=== PATIENT | female | born 1980 | race Caucasian/White ===

== ENCOUNTER → 2023-03-04 | Outpatient (CLI) | payer OTHER, SELFPAY ==
--- NOTE | 2023-03-04 | IMM_PTH ---
PATIENT: AZAR SANCHEZ LOC: [facility] U#:[id number] AGE/SX: 42/F ROOM: RE03/04/[address]: Dr. Ryan Carter MD : 1980 BED: DIS: 03/04/2023 SPEC #: [id number] RECD: 03/05/23 13:11 STATUS: EDILSON REChad #: [id number] DORIAN: 03/04/23 00:[address]: Ryan Carter DEPT: IMMUNOHISTOCHEMISTRY RECD BY: Mary Catalan ENTERED: 03/05/23 13:13 SP TYPE: IMMUNO OTHR DR: Dr. Nathan Gallegos, DO Tissues: A - Right breast, NOS B - Right breast, NOS C - Axillary lymph node, NOS Procedures: E-CAD (initial) CALPONIN-1 (add) CK5-6 (add) CK8 (add) ER (add) HER2 JD (add) KI-67 (add) MAMM (add) P53 (add) DC (add) Pankeratin (add) GATA3 (add) P40 (add) MOC-31 (add) PHYSICIAN & [place] [id number] SPECIMEN INFORMATION: Tissue Source: A - Right breast mass at 2 o'clock, B - Right breast mass at 10 o'clock, C - Right axillary lymph node Clinical Info: Right breast mass Specimen Number: [id number] A-C CPT code: 83394 x3, 73097 x17, 44746 x6 METHODOLOGY: Deparaffinized sections of prefer/formalin-fixed tissue or PAP/DQ stained slides are incubated with monoclonal/polyclonal antibodies/oligonucleotide probes. Localization is made via biotin free immunoperoxidase method. Appropriate controls are performed and reacted as expected. Results on target cell population are indicated in the following table: RESULTS: ANTIBODY / CLONE RESULT Block A P53 (DO-7) positive Ki-67 (30-9) positive CK8 (38gjdhN11) positive CK5-6 (D5 & 1684) negative Calponin-1 (WZ833P) negative P40 (BC28) negative E-Cad (ECH-6) positive MOC-31 (4561) positive (DIM) MORPHOMETRIC ANALYSIS ER (clone 6F11) >95% mod intensity to strong DC (clone 16/1E2) 68% strong Her-2Neu (clone CB11) 0-1 + Block B P53 (DO-7) positive Ki-67 (30-9) positive CK8 (43lpxwB77) positive CK5-6 (D5 & 1684) negative Calponin-1 (WJ485T) negative P40 (BC28) negative E-Cad (ECH-6) positive MOC-31 (4561) positive (DIM) MORPHOMETRIC ANALYSIS ER (clone 6F11) >95% mod to strong intensity DC (clone 16/1E2) 70% strong intensity Her-2Neu (clone CB11) 0 Block C GATA3 (L50-823) positive Mammaglobin (31A5) positive AE1-3 (AE1/AE3/PCK26) positive E-Cad (ECH-6) positive The prognostic test for HER2 is performed on formalin-fixed paraffin embedded tissue. A 3+ (positive) staining pattern is defined as intense, homogeneous, complete, circumferential membranous staining in >10% of contiguous tumor cells. A similar weak (2+) staining pattern is interpreted as equivocal. ROSEANN follow-up testing is recommended for all equivocal cases. Positivity/negativity for ER/DC is reported if > or < 1% of the tumor cells are immuno- reactive, respectively. The ASCO/CAP criteria is used for scoring. Reference: Journal of Clinical Oncology, 2013; 31:9517-3249 & 2010; 16:0193-5017. Ischemic time: Less than one hour. Duration of fixation: 9.5 Hrs; Sample Adequate: Yes. These assays have not been validated on decalcified tissues. Results should be interpreted with caution given the likelihood of false negativity on decalcified specimens or fixation greater than 72 hours. Alternative testing methods (FISH/dualISH for Her2; gene expression for ER) are recommended, if applicable. Please notify the laboratory if additional testing is required. These tests were developed and their performance characteristics determined by [facility]. They may not have been cleared or approved by the U.S. Food and Drug Administration. The FDA has determined that such clearance or approval is not necessary. The above immunohistochemical/dualISH markers are ordered and reviewed by the Pathologist. INTERPRETATION: A. Right breast mass at 2 o'clock, core biopsy: Invasive ductal carcinoma, grade 2-3/3. Positive for estrogen receptors (favorable prognostic indicator). Positive for progesterone receptors (favorable prognostic indicator). Negative for overexpression of HGP4xqd. B. Right breast mass at 10 o'clock, core biopsy: Invasive ductal carcinoma, grade 2-3/3 Ductal carcinoma in situ Positive for estrogen receptors (favorable prognostic indicator). Positive for progesterone receptors (favorable prognostic indicator). Negative for overexpression of ESB8vtq. C. Right axillary lymph node, core biopsy: Metastatic ductal carcinoma of breast origin.
--- NOTE | 2023-03-04 | BRBX_PTH ---
PATIENT: AZAR SANCHEZ LOC: [facility] U#:[id number] AGE/SX: 42/F ROOM: RE03/04/[address]: Dr. Ryan Carter MD : 1980 BED: DIS: 03/04/2023 SPEC #: [id number] RECD: 03/04/23 13:23 STATUS: EDILSON SYLVAIN #: [id number] DORIAN: 03/04/23 00:[address]: Ryan Carter DEPT: SURGICAL PATHOLOGY RECD BY: Roberto Corrales ENTERED: 03/04/23 13:23 SP TYPE: BREAST BX OTHR DR: Dr. Nathan Gallegos DO Tissues: A - Right breast, NOS B - Right breast, NOS C - Right axillary region Procedures: Surgery Specimen Level IV HEADER OPERATION: Biopsy of right breast mass and axilla PRE-OP DIAGNOSIS: Biopsy of right mass and right axillary lymph node TISSUE SUBMITTED: A - Right breast mass 2 o'clock position, B - Right breast mass 10 o'clock position, C - Right axillary lymph node MICROSCOPIC DIAGNOSIS A. Right breast mass at 2 o'clock, core biopsy: Invasive ductal carcinoma with the following characteristics: Nuclear grade - 2/3 Maximal length - 16.5 millimeters Other findings - microcalcifications. See comment. B. 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 See comment. C. Right axillary lymph node, core biopsy: Metastatic carcinoma consistent with breast primary. See comment. AM:heather 03/05/2023 COMMENT A-C. Immunohistochemistry ([id number]) supports the above diagnosis. Case has been reviewed in consultation with Dr. Mak who concurs with the above diagnosis. IDC:SJ MICROSCOPIC DESCRIPTION Slides are reviewed. GROSS DESCRIPTION A - Received in fixative is one container labeled with the patient's name and designated right breast mass tissue 2 o'clock position. The specimen consists of multiple elongated fragments of vyas soft tissue that in aggregate measure 2.0 x 0.5 x 0.1 cm. The entire specimen is submitted in one cassette. B - Received in fixative is one container labeled with the patient's name and designated right breast mass tissue 10 o'clock position. The specimen consists of two elongated fragments of vyas soft tissue that in aggregate measure 2.0 x 0.3 x 0.1 cm. The entire specimen is submitted in one cassette. C - Received in saline and post-fixed in formalin is one container labeled with the patient's name and designated right lymph node axillary. The specimen consists of The specimen consists of multiple elongated fragments of vyas soft tissue that in aggregate measure 1.5 x 0.3 x 0.1 cm. The entire specimen is submitted in one cassette. / SJ:heather 03/04/2023 TC:0 Ischemic Time: 1 minute Fixation Time: 9.5 hours CPT: 73921 x3
== END | disposition home or self-care (01) ==
LOC: LABSPEC 11:36
PROVIDERS: PCP Family Medicine; Referring Provider Surgery; Visit Provider Surgery
DX: D05.11 Intraductal carcinoma in situ of right breast (principal); C79.89 Secondary malignant neoplasm of other specified sites
CPT/HCPCS: 81002; 88305; 88341; 88342

== ENCOUNTER → 2023-03-18 | Outpatient (CLI) | payer SELFPAY, OTHER ==
--- NOTE | 2023-03-18 09:15 | BI_ITS ---
MAMMOGRAPHY - UNILATERAL DIAGNOSTIC: RIGHT BREAST REASON FOR EXAM: Female, 42 years old. History of intraductal carcinoma in situ and ductal carcinoma status post biopsies. Evaluate for clip placement. PERTINENT HISTORY: Non-contributory. TECHNIQUE: Digital examination. Mediolateral oblique (MLO) and craniocaudad (CC) views of the breast were obtained on 3 images. CAD: CAD was performed on this study. COMPARISON: None. FINDINGS: Breast Composition: There are scattered areas of fibroglandular density. Cluster of calcifications in the slightly medial and central portion of the breast with tissue clip marker adjacent to them. Tissue clip marker in the upper outer quadrant of the breast. Small axillary lymph nodes. BI/DIAG MAMM W/CAD, UNILAT IMPRESSION: Microcalcifications and clip markers as described. ASSESSMENT CATEGORY: BIRADS Category 6: Known Biopsy-Proven Malignancy - Appropriate Action Should Be Taken. A letter regarding these results will be sent to the patient by the facility within 30 days. FOLLOW-UP RECOMMENDATION: Known malignancy - prior to therapy (J) Approximately 10% of breast cancers are not detected by mammography. A normal mammogram should not delay biopsy of a clinically suspicious abnormality. Electronically Signed: Walter Cleveland MD at 10:22 EST ,
== END | disposition home or self-care (01) ==
PROVIDERS: PCP Family Medicine; Referring Provider Surgery; Visit Provider Surgery
DX: Z98.890 Other specified postprocedural states (principal)
CPT/HCPCS: 77065

== ENCOUNTER → 2023-03-27 | Outpatient (CLI) | payer SELFPAY, OTHER ==
--- NOTE | 2023-03-27 07:24 | NM_ITS ---
CLINICAL: 83-year-old female with history of primary breast carcinoma. WHOLE BODY 99m Tc MDP RADIONUCLIDE BONE SCINTIGRAPHY COMPARISON: None available FINDINGS: Following the intravenous administration of 28.0 mCi of 99m Tc MDP, whole body bone images reveal: 1. Increased radiopharmaceutical concentration is defined in the acromioclavicular and sternoclavicular compartments of both shoulders, the knees bilaterally, the left ankle, the lower cervical spine posteriorly on the left, left elbow and wrist articulations. 2. The remaining skeletal structures are scintigraphically unremarkable with normal-appearing renal images and urinary bladder activity identified. NM/Bone Scan Whole Body IMPRESSION: 1. The increase in tracer concentration identified in the bilateral shoulders, both knees, the left ankle, the cervical spine, the left elbow and wrist is commensurate with degenerative arthritis. 2. There is no definitive scintigraphic evidence of osseous skeletal metastatic disease. Electronically Signed: Celso Sarabia DO at 23:27 EST ,
--- NOTE | 2023-03-27 07:24 | CT_ITS ---
EXAM: CT CHEST, ABDOMEN AND PELVIS WITH INTRAVENOUS CONTRAST CLINICAL INDICATION: IV ONLY-BREAST CA TECHNIQUE: Helically acquired images were obtained of the chest, abdomen and pelvis with intravenous contrast. This CT exam was performed using one or more of the following dose reduction techniques: automated exposure control, adjustment of the mA and/or kV according to patient size, and/or use of iterative reconstruction technique. CONTRAST: 100ml ISOVUE 300 COMPARISON: Whole-body bone scan on the same date. FINDINGS: CHEST: LUNGS AND PLEURAL SPACES: No significant abnormality. No mass. No consolidation or edema. No pleural effusion or thickening. No pneumothorax. HEART: No significant abnormality. Heart size is normal. No pericardial effusion. MEDIASTINUM: No significant abnormality. Esophagus is unremarkable. No hiatal hernia. No mediastinal or hilar adenopathy. THYROID: No significant abnormality. No thyroid lesions. ABDOMEN: LIVER: No significant abnormality. Homogeneous. No focal mass. GALLBLADDER AND BILE DUCTS: Cholelithiasis. No secondary signs of cholecystitis. No intra- or extrahepatic biliary ductal dilation. PANCREAS: No significant abnormality. No focal cystic or solid mass. SPLEEN: No significant abnormality. Normal size without focal cystic or solid mass. ADRENALS: No significant abnormality. No nodules. KIDNEYS AND URETERS: No significant abnormality. Normal renal size and position. No hydronephrosis. STOMACH AND BOWEL: No significant abnormality. No stomach or bowel distention. No focal inflammatory change. PELVIS: APPENDIX: No evidence of acute appendicitis. BLADDER: No significant abnormality. REPRODUCTIVE: Normal as visualized. No mass. CHEST, ABDOMEN and PELVIS: INTRAPERITONEAL SPACE: No significant abnormality. No ascites or other fluid collection. No free air. BONES/JOINTS: Degenerative changes in the spine. No distinct evidence of lytic or blastic osseous lesions. SOFT TISSUES: Masslike asymmetry in the right breast. Small fat-containing umbilical hernia. VASCULATURE: No significant abnormality. Aorta is non-dilated. No aortic dissection. No obvious central pulmonary embolism although this study was not performed with the pulmonary embolism protocol. LYMPH NODES: Right axillary adenopathy consistent with the history of malignancy. No left axillary adenopathy. No abdominal or pelvic adenopathy. No mediastinal adenopathy. CT/CT Chest, Abd, Pel w/Contrast IMPRESSION: 1. Masslike asymmetry in the right breast. Associated right axillary adenopathy consistent with the given history of malignancy. 2. Cholelithiasis. No secondary signs of cholecystitis. 3. No additional evidence of distant metastatic disease or other acute abnormality. Electronically Signed: Ihsan Reagan DO at 23:39 EST ,
--- OUTSIDE RECORDS SUMMARY | 2023-03-27 07:27 | XMS RPT_ITS | CCD ---
Author Name Unknown Address [address] [place] [address] Organization [facility] Care Team Providers Care Adventure Challenge Instructor Name Role Phone BRAEDEN SAWYER MD Attending Unavailable BRAEDEN SAWYER MD Consulting Unavailable BRAEDEN SAWYER MD Primary Care Unavailable BRAEDEN SAWYER MD Admitting Unavailable PROVIDER, UNKNOWN Consulting Unavailable Results Test Name Value Interpretation Reference Range Facil ity Encounters Encounter Date Encounter Type Care Provider Facility Start: 02-28-2023 End: 02-28-2023 ambulatory BRAEDEN SAWYER [facility] Payers Date Payer Category Payer Unknown [id number] Unknown [id number] Summary Purpose Family History No Family History Records FoundNo Family History Records Found Advance Directives No Advanced Directives Records FoundNo Advanced Directives Records Found Additional Source Comments INFORMATION SOURCE (unrecogn ized section and content) DATE CREATED AUTHOR AUTHOR'S ORGANIZ ATION 03/05/2023 [facility] FOR RECORDS PERTAINING TO PATIENTS WHO ARE OR HAVE BEEN ENROLLED IN A CHEMICAL DEPENDENCY/SUBSTANCEABUSE PROGRAM, SOME INFORMATION MAY BE OMITTED. This clinical summary was aggregated from multiple sources. Caution should be exercised in using it in the provision of clinical care. This summary normalizes information from multiple sources, and as a consequence, information in this document may materially change the coding, format and clinical context of patient data. In addition, data may be omitted in some cases. CLINICAL DECISIONS SHOULD BE BASED ON THE PRIMARY CLINICAL RECORDS. [facility] [employer] provides no warranty or guarantee of the accuracy or completeness of information in this document.
== END | disposition home or self-care (01) ==
PROVIDERS: PCP Family Medicine; Referring Provider Internal Medicine Medical Oncology; Visit Provider Internal Medicine Medical Oncology
DX: C50.911 Malignant neoplasm of unspecified site of right female breast (principal)
CPT/HCPCS: 71260; 74177; 78306; A9503; Q9967

== ENCOUNTER 2023-04-04 05:29 | Day surgery (SDC) | payer SELFPAY, OTHER ==
[2023-04-04 06:21] VITALS: BP 126/85; PULSE 85; RESP 18; TEMP 36.8; O2SAT 97; BMI 41.8
[2023-04-04 06:26] LABS: Internal QC Validated? YES +Cl - CLEAR BKGD; Pregnancy, Urine Negative Negative
[2023-04-04] MEDS: Lactated Ringers 1,000 ML 15 ML IV (06:35)
--- NOTE | 2023-04-04 07:37 | HP.PCM_ITS ---
History and Physical Date of Admission: 04/04/23 Date of Service: 04/01/23 MR#: [id number] Acct: [id number] Name: AZAR SANCHEZ Rep #: [id number] : 1980 Provider: Dr. Ryan Carter MD Age/Sex: 43/F Location: [facility] Status: Signed Intake Vital Signs 03/25/2411:58 04/01/2409:04 Height 5 ft 5 in 5 ft 5 in Weight: 115 lb 4 oz BMI 19.1 BP 131/88 H Blood Pressure Location Rt brachial Position Sitting Respiration 18 Pulse 83 Pulse Source Monitor Temp 98.0 F Temp Source Temporal Pulse Oximetry (%) 97 Oxygen Delivery Method room air Intake Visit Reasons: REVIEW BIOPSY RESULTS Chief Complaint: review biopsy results Allergies No Known Allergies Allergy (Unverified 04/01/23 11:18) Medications NK 03/04/23 [History Confirmed 04/01/23] PFSH Surgical History delivery delivered H/O dilation and curettage Family History Mother Hypertension Cancer skin Social History Smoking Status: Never smoker alcohol intake: never substance use type: does not use HPI HPI HPI: Patient is a 42 female who presents for palpable breast mass of the right breast. They are referred from Dr. Gallegos. She previously met with me for a consultation visit last month and underwent biopsy of 2 breast masses as well as axillary lymph node. The above returned positive for invasive ductal carcinoma in situ and patient met with Dr. Moore of oncology earlier this month. She underwent CT imaging of the chest and abdomen as well as a bone scan for staging purposes on 03/27/2023 but states that she has not been informed of these results. Otherwise she denies any significant health updates and is happy to confirm that her biopsy sites are well-healed. Below is recapitulated from patient's consultation visit for ease of review: Based on mammographic criteria this was a BI-RADS 0 followed by a reflex ultrasound on 02/28/2023 which was read as a BI-RADS 5 and detailed 2 separate right breast masses as well as 2 suspicious lymph nodes within the right axilla. The mass was first found by patient approximately 8 months ago in June of this year. She shares that she first found this area because it is occasionally painful?particularly if she is doing something. She declares that she has not observed any growth. She denies any discoloration of the skin about this area or nipple discharge. Patient has no prior history of breast pathology. As such she has no history of prior breast biopsy. She underwent menarche at the age of 13. She has had 11 pregnancies and 8 live births. Breast-feeding was used with almost all of her pregnancies. Patient has no first-degree relatives with breast cancer. The patient has no history of hormone replacement therapy. There is no history of trauma/infection to the affected breast. ROS General General: No weight change, appetite, fatigue, colon cancer, breast cancer or weakness HEENT HEENT: No difficulty swallowing, eye injury, eye surgery, swollen glands or hoarseness Endo Endocrine: No thyroid disease, diabetes mellitus, thyroid cancer, Hair loss, heat intolerance or cold intolerance Skin Skin: No rash or changing moles Breast Breast: Yes right breast lump, breast pain and abnormal US; No left breast lump, nipple discharge, abnormal mammogram or breast enlargement Musc Musculoskeletal: No back problems, arthritis, rheumatoid arthritis, gout or joint pain Cardio Cardiovascular: No murmur, pacemaker, heart disease, atrial fibrillation, high blood pressure, heart attack, heart stent, palpitations, shortness of breat with exertion or chest pain Psych Psychiatric: No depression, anxiety or hearing voices Resp Respiratory: No shortness of breath, No sleep apnea, Yes cough, No COPD, No asthma, No emphysema and No wheezing Gastro Gastrointestinal: No abdominal pain, No nausea or vomiting, No diarrhea, No constipation, No blood in stool, No acid reflux, No hemorrhoids, No ulcers, No gallbladder problem and No black,tarry stools Jaime Hematologic: No blood thinners, No blood disorders, No bleeding, No anemia and No blood clots Neuro Neurologic: No system reviewed and no additional complaints, except as documented, No as per HPI, No abnormal gait, No abnormal hearing, No abnormal movements, No abnormal speech, No behavioral changes, No burning sensations, No confusion, No convulsions, No disequilibrium, No dizziness, No localized weakness, No frequent falls, No headache(s), No lack of coordination, No loss of vision, No memory loss, Yes numbness, No other visual disturbances, No radicular pain, No restless legs, No sensory deficit, No syncope, Yes tingling, No tremor(s), No weakness and No other Exam Const General: cooperative and anxious Orientation: alert, awake and oriented x3 Chest Other: At the 2 o'clock position approximately 3 to 4 cm from the areolar border I palpated a firm mass that is relatively fixed and mildly tender to patient. At the 10 o'clock position there is additional firmness approximately 4 cm from the areolar border with mild tenderness. There does feel to be some fullness within the right axilla as well but it is hard to discriminate any masses. Patient's lesions at the 2:00 and 10:00 positions measure 3.8 x 2.1 x 2.9 cm and 1.7 x 1.1 x 1.9 cm, respectively by ultrasound. The axilla is examined and just superior lateral to the patient's 10:00 mass identified 2 rounded lymph nodes that measure 1.2 x 1.0 x 1.1 cm and 1.6 x 1.1 x 1.2 cm I am able to confirm the patient's focal sites from her respective biopsies are well-healing and there is no discoloration or ecchymotic changes. Resp Effort & Inspection: normal respiratory effort Assessment and Plan Assessment and Plan (1) Invasive ductal carcinoma of right breast: Status: Acute Comment: Multifocal R breast cancer, UI,UL and UO quadrants, ER/AK positive, Her2 negative. Per staging imaging with CT and bone scan, patient has evidence of multifocal breast cancer with axillary lymph node metastasis but no evidence of distant metastases. This update was shared with patient and her and I therefore recommended we proceed with a discussion on Port-A-Cath placement for initiation of neoadjuvant therapy. I also shared that I would confirm these plans with oncology before proceeding and following the appointment did discuss patient's care with Dr. Moore of oncology who agreed to proceed with neoadjuvant therapy at first availability. For the clinic visit I discussed the procedure for port placement as well as the need to adhere to strict sterility precautions. Patient and her expressed understanding of this information and appreciation for the discussion. They also expressed a desire to be underway as soon as possible. Lastly, they share that they are due to obtaining a phone for their personal use that will make correspondence for treatment plans easier. Plan: Right versus left internal jugular Port-A-Cath placement at first OR availability. I have examined the patient and the H&P has been reviewed. There are no clinical changes since date of exam. I did discuss with patient placement of a left- sided chest port as a means of hopefully avoiding any future overlap of surgical sites as we project in the future for the probable need for modified radical mastectomy. Patient and her expressed understanding of this information and we will now proceed to the operating room for port placement for indication of metastatic right breast cancer as discussed in further detail above.
[2023-04-04] MEDS: Cefazolin 2 GM in 0.9% Normal Saline (100mL Bag) 100 ML IV (07:50)
[2023-04-04] MEDS: Bupivacaine 0.25% 30 ML Vial (08:15)
--- NOTE | 2023-04-04 08:50 | OP.PCM_ITS ---
Report of Operation Date of Procedure: 04/04/23 Pre-Operative Diagnosis: Metastatic, multifocal right breast cancer requiring n eoadjuvant chemotherapy Post-Operative Diagnosis: Same Surgery/Procedure Performed:: Insertion of left internal jugular 8 Fr Port-A-Cath Surgeon: Ryan Carter signal integrity engineer: None Type of Anesthesia: MAC/Supplemental/Local Anesthesiologist: Ashwin Maynard Estimated Blood Loss (mL): 5 Description of Procedure: After appropriate identification in the preoperative holding area the patient was brought to the operating room. There she was administered preoperative antibiotics and positioned supine on the operating room table. Once sedation was begun, the upper chest and lower cervical region were prepped and draped in usual sterile fashion. A formal timeout was then conducted to confirm both the patient and procedure. Ultrasound was used to localize the left internal jugular vein. Then a wheal of 0.25% bupivacaine plain was raised superficially in this location and the vein was accessed under direct ultrasound guidance using a Seldinger technique and micro access kit to place a guidewire. The position of the guidewire was confirmed with fluoroscopy. The micro access guidewire was exchanged for standard 035 guidewire using provided sheath. Next the position of the port pocket was determined and again local anesthetic was used to anesthetize the area of both the pocket and the tunneling cephalad. A transverse incision 3 cm in width was made down through the subcutaneous tissue. Selective electrocautery was used to obtain hemostasis. Then with blunt dissection the port pocket was developed. The catheter was connected to the tunneler and was tunneled up to the position of the guidewire. Here the dilator and peel-away sheath were placed over the guidewire and the guidewire was removed. Position was again confirmed with fluoroscopy. The catheter was then fed into the sheath and slowly the sheath was peeled away as the catheter was inserted fully into the neck. Back in the chest the excess catheter was trimmed and the port was connected to the catheter. The port was tied into the pocket using 3-0 Vicryl. Function was then tested using sterile saline on a Madrid needle. It was locked with 3.0 mL of heparinized saline (concentration 50U/5mL). The port pocket was closed with a deep dermal stitch using a running 3-0 Vicryl followed by 4-0 Monocryl subcuticular stitch. The 1 cm incision in the neck was closed with a single interrupted subcuticular stitch using 4-0 Monocryl. Dermabond was applied as a dressing. Patient was then aroused from the sedation and taken to PACU for ongoing recovery were a portable chest x-ray was obtained to confirm port positioning and exclude any pneumothorax. Grafts/Implants Used: PowerPort ISP implantable port, [id number], lot [id number], exp09/20/2024 Complications None Admit VTE Documentation VTE Mechan Device Prophylaxis: SCD's Procedures Cardiovascular CF Procedures 33xxx-39xxx: [id number] Insert tunneled cv cath
--- NOTE | 2023-04-04 08:54 | DCINST_ITS ---
Discharge Instructions Diet Discharge Diet: No restrictions Activity Discharge Activity: May Shower Dressing / Incision Call your doctor if your incision/area has: Continuous Slow Oozing, Sudden Increased Bleeding, Increased Pain/ Swelling, Increased Redness, Foul Smelling Discharge and Swelling at the incision site Call your doctor if you observe: Fever of 101 or Higher and Uncontrolled pain Cleanse incision/area with: Soap & Water Follow Up Care Test Results: Test results from this visit will be discussed in further detail at your follow- up appointment, if applicable. Discharge Plan Admission Primary Reason for Your Visit: Port-A-Cath placement Attending Provider: Ryan Carter Primary Care Provider: Nathan Gallegos Discharge Orders/Prescriptions Prescriptions: No Action dexamethasone 4 mg tablet 8 mg PO .COMPLEX Qty: 12 3RF Rx Instructions: 8 mg orally twice daily ONLY the day before, the day of, and the day after chemotherapy lidocaine-prilocaine 2.5-2.5 % cream 1 applic topical ONCE PRN (Reason: port access) 30 Days Qty: 30 2RF prochlorperazine maleate 10 mg tablet 10 mg PO Q6H PRN (Reason: nausea and vomiting) Qty: 30 2RF ondansetron 8 mg tablet,disintegrating 8 mg PO Q8H PRN (Reason: nausea and vomiting) Qty: 30 1RF Referrals / Follow Up: Nathan Gallegos DO [Primary Care Provider] - Disposition Disposition (needs filled in before D/C Order can be placed): Home, Self Care
[2023-04-04 08:58] VITALS: BP 126/85; BP 133/90; PULSE 94; RESP 18; TEMP 36.3; O2SAT 98
[2023-04-04 09:00] VITALS: BP 126/85; BP 143/93; PULSE 93; RESP 12; O2SAT 99
[2023-04-04 09:05] VITALS: BP 126/85; BP 148/93; PULSE 93; RESP 18; O2SAT 97
--- NOTE | 2023-04-04 09:07 | RAD_ITS ---
STUDY: X-RAY CHEST REASON FOR EXAM: Female, 43 years old. Status post line placement TECHNIQUE: Single AP portable view of the chest. COMPARISON: None. FINDINGS: A left-sided Port-A-Cath has been placed with the tip at the junction of the superior vena cava and right atrium. The lungs are clear and expanded. There is no demonstrated pleural abnormality. Normal size heart. Normal mediastinum and josh. Normal visualized pulmonary arteries. Normal visualized aortic arch and descending thoracic aorta. Normal visualized thoracic spine. Normal visualized ribs, clavicles, and shoulders. There is no demonstrated abnormality of the visualized soft tissue structures of the upper abdomen. RAD/CXR for Line Placement IMPRESSION: The tip of the left-sided rosa isela catheter is at the junction of the superior vena cava and right atrium. Electronically Signed: Albert Us MD at 9:27 EST ,
[2023-04-04 09:10] VITALS: BP 126/85; BP 146/96; PULSE 88; RESP 18; TEMP 36.5; O2SAT 97
[2023-04-04 09:51] VITALS: BP 126/85
== END 2023-04-04 10:00 | disposition home or self-care (01) ==
LOC: SDC 05:31 → AC 05:32
PROVIDERS: Anesthesiology; PCP Family Medicine; Referring Provider Surgery; Visit Provider Surgery
PROC: (CPT 36561; principal; 2023-04-04 07:15)
DX: Z45.2 Encounter for adjustment and management of vascular access device (principal); C77.3 Secondary and unspecified malignant neoplasm of axilla and upper limb lymph nodes; C50.211 Malignant neoplasm of upper-inner quadrant of right female breast; C50.411 Malignant neoplasm of upper-outer quadrant of right female breast; Z17.0 Estrogen receptor positive status [ER+]
CPT/HCPCS: 36561; 71045; 77001; 81025; C1894; J7120; C1788; J2405

== ENCOUNTER → 2023-07-07 | Outpatient (CLI) | payer SELFPAY, OTHER ==
--- NOTE | 2023-07-07 12:24 | MRI_ITS ---
STUDY: BILATERAL BREAST MR WITHOUT AND WITH CONTRAST REASON FOR EXAM: Female, 43 years old. Carcinoma of the right breast. Patient is status post neoadjuvant therapy. Presurgical evaluation. Maternal cousin with breast cancer. TECHNIQUE: Multi-sequence multi-echo imaging of both breasts was performed with a dedicated breast coil. T1-weighted and T2-weighted images were performed before the administration of contrast. T1-weighted images were also performed after the intravenous administration of 22 cc of Clariscan contrast. COMPARISON: Right diagnostic mammogram from 03/18/2023 FINDINGS: RIGHT BREAST: Scattered fibroglandular densities with minimal background enhancement. Extensive linear non-mass enhancement extending from the lower medial quadrant to the lower outer quadrant. Medial quadrant shows more enhancement than the lateral quadrant. The enhancement extends from the upper inner quadrant of the right breast to the lower inner quadrant of the right breast. Minimal skin thickening and skin irregularity. Findings are compatible with extensive multicentric involvement. LEFT BREAST: Scattered fibroglandular densities with minimum background enhancement. No abnormal enhancing masses or areas of non-mass enhancement in the left breast. Multiple enlarged and enhancing right axillary lymph nodes highly suspicious for tumor involvement. No abnormality in the visualized regions of the chest or liver. MRI/Breast Bilateral W/O and W IMPRESSION: Extensive enhancement in the right breast compatible with multicentric involvement of tumor. No abnormality of the left breast. Multiple enlarged and enhancing right axillary lymph nodes highly suspicious, as outlined above. CATEGORY: BIRADS Category 6: Known Biopsy-Proven Malignancy - Appropriate Action Should Be Taken. A letter regarding these results will be sent to the patient by the facility within 30 days. Electronically Signed: Walter Cleveland MD at 15:51 EDT ,
== END | disposition home or self-care (01) ==
LOC: MRI 12:18
PROVIDERS: PCP Family Medicine; Referring Provider Surgery; Visit Provider Surgery
DX: C50.911 Malignant neoplasm of unspecified site of right female breast (principal); C77.3 Secondary and unspecified malignant neoplasm of axilla and upper limb lymph nodes; N63.10 Unspecified lump in the right breast, unspecified quadrant
CPT/HCPCS: 77049; A9575; A4216; C8908

== ENCOUNTER 2023-07-15 12:47 | Observation (INO) | payer SELFPAY, OTHER ==
[2023-07-15] VITALS (13 sets, daily range): BP systolic 109–133; BP diastolic 69–89; PULSE 70–118; RESP 16–18; TEMP 36.1–37.1; O2SAT 92–99; BMI 41.8
--- NOTE | 2023-07-15 | IMM_PTH ---
PATIENT: AZAR SANCHEZ LOC: [facility] U#:[id number] AGE/SX: 43/F ROOM: MS305 RE07/15/[address]: Dr. Ryan Carter MD : 1980 BED: 1 DIS: 07/16/2023 SPEC #: [id number] RECD: 07/18/23 13:55 STATUS: EDILSON REQ #: [id number] DORIAN: 07/15/23 00:[address]: Ryan Carter DEPT: IMMUNOHISTOCHEMISTRY RECD BY: Christian Maynard ENTERED: 07/18/23 13:58 SP TYPE: IMMUNO OTHR DR: Dr. Nathan Gallegos, Tissues: A - Breast, NOS Procedures: E-CAD (initial) CALPONIN-1 (add) CD31 (add) CK8 (add) E-CAD (add) FACTOR VIII (add) Pankeratin (add) P40 (initial) PHYSICIAN & INSTITUTION [place] [id number] SPECIMEN INFORMATION: Tissue Source: A- Right breast Clinical Info: Breast mass, right Specimen Number: [id number] CPT code: 51681,08076a41 METHODOLOGY: Deparaffinized sections of prefer/formalin-fixed tissue or PAP/DQ stained slides are incubated with monoclonal/polyclonal antibodies/oligonucleotide probes. Localization is made via biotin free immunoperoxidase method. Appropriate controls are performed and reacted as expected. Results on target cell population are indicated in the following table: RESULTS: ANTIBODY / CLONE RESULT Block A 8 E-Cad (ECH-6) positive AE1-3 (AE1/AE3/PCK26) positive CK8 (27ijqcQ19) positive Calponin-1 (IX617R) negative CD31 (HARISH/70A) negative Factor VIII (R Ag) negative P40 (BC28) negative Block A 13 E-Cad (ECH-6) positive AE1-3 (AE1/AE3/PCK26) positive CK8 (00thjfB99) positive Calponin-1 (HL968X) negative CD31 (HARISH/70A) negative Factor VIII (R Ag) negative P40 (BC28) negative Block A 15 E-Cad (ECH-6) positive AE1-3 (AE1/AE3/PCK26) positive CK8 (09tghnA25) positive Calponin-1 (FM350G) negative P40 (BC28) negative Block A 17 E-Cad (ECH-6) positive AE1-3 (AE1/AE3/PCK26) positive CK8 (48ofegQ34) positive Calponin-1 (EP394M) negative P40 (BC28) negative These tests were developed and their performance characteristics determined by [facility]. They may not have been cleared or approved by the U.S. Food and Drug Administration. The FDA has determined that such clearance or approval is not necessary. The above immunohistochemical/dualISH markers are ordered and reviewed by the Pathologist. INTERPRETATION: A. Right breast, mastectomy: Invasive ductal carcinoma. AM/mr 07/22/23
[2023-07-15] MEDS: Lactated Ringers 1,000 ML 15 ML IV (06:51)
--- NOTE | 2023-07-15 07:05 | PCM.HP.BLA ---
History and Physical Date of Admission: 07/15/23 Date of Service: 06/30/23 MR#: [id number] Acct: [id number] Name: AZAR SANCHEZ Rep #: [id number] : 1980 Provider: Dr. 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 Required: No Accompanied by: Is patient in pain?: No Allergies No Known Allergies Allergy (Verified 06/30/23 08:35) Medications lidocaine-prilocaine 2.5 %-2.5 % topical cream 1 applic topical ONCE PRN port access 30 days #30 grams 04/03/23 [Rx Confirmed 06/30/23] ondansetron 8 mg disintegrating tablet 8 mg PO Q8H PRN nausea and vomiting #30 tabs 04/03/23 [Rx Confirmed 06/30/23] oxycodone-acetaminophen 5 mg-325 mg tablet 1 tab PO Q8H PRN 06/11/23 [History Confirmed 06/30/23] PFSH Medical History 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 She presents for follow-up after this treatment. She is accompanied by her . Her last clinic visit was 04/01/2023 but she underwent port placement for neoadjuvant therapy on 04/04/2023. She shares that she tolerated the chemotherapy well and remarks of only some tiredness and diarrhea. She has had no infectious concerns. She shares that she believes the areas of cancer are smaller and that there is no new area of concern. She has not noticed any new drainage or new tenderness. Below is recapitulated from patient's consultation visit for ease of review: Patient is a 42 female who presents for palpable breast mass of the right breast. They are referred from Dr. Gallegos. She previously met with me for a consultation visit last month and underwent biopsy of 2 breast masses as well as axillary lymph node. The above returned positive for invasive ductal carcinoma in situ and patient met with Dr. Moore of oncology earlier this month. She underwent CT imaging of the chest and abdomen as well as a bone scan for staging purposes on 03/27/2023 but states that she has not been informed of these results. Otherwise she denies any significant health updates and is happy to confirm that her biopsy sites are well-healed. Based on mammographic criteria this was a BI-RADS 0 followed by a reflex ultrasound on 02/28/2023 which was read as a BI-RADS 5 and detailed 2 separate right breast masses as well as 2 suspicious lymph nodes within the right axilla. The mass was first found by patient approximately 8 months ago in June of this year. She shares that she first found this area because it is occasionally painful?particularly if she is doing something. She declares that she has not observed any growth. She denies any discoloration of the skin about this area or nipple discharge. Patient has no prior history of breast pathology. As such she has no history of prior breast biopsy. She underwent menarche at the age of 13. She has had 11 pregnancies and 8 live births. Breast-feeding was used with almost all of her pregnancies. Patient has no first-degree relatives with breast cancer. The patient has no history of hormone replacement therapy. There is no history of trauma/infection to the affected breast. ROS General General: No weight change, appetite, fatigue, colon cancer, breast cancer or weakness HEENT HEENT: No difficulty swallowing, eye injury, eye surgery, swollen glands or hoarseness Endo Endocrine: No thyroid disease, diabetes mellitus, thyroid cancer, Hair loss, heat intolerance or cold intolerance Skin Skin: No rash or changing moles Breast Breast: Yes right breast lump, breast pain and abnormal US; No left breast lump, nipple discharge, abnormal mammogram or breast enlargement Musc Musculoskeletal: No back problems, arthritis, rheumatoid arthritis, gout or joint pain Cardio Cardiovascular: No murmur, pacemaker, heart disease, atrial fibrillation, high blood pressure, heart attack, heart stent, palpitations, shortness of breat with exertion or chest pain Psych Psychiatric: No depression, anxiety or hearing voices Resp Respiratory: No shortness of breath, No sleep apnea, Yes cough, No COPD, No asthma, No emphysema and No wheezing Gastro Gastrointestinal: No abdominal pain, No nausea or vomiting, No diarrhea, No constipation, No blood in stool, No acid reflux, No hemorrhoids, No ulcers, No gallbladder problem and No black,tarry stools Jaime Hematologic: No blood thinners, No blood disorders, No bleeding, No anemia and No blood clots Neuro Neurologic: No system reviewed and no additional complaints, except as documented, No as per HPI, No abnormal gait, No abnormal hearing, No abnormal movements, No abnormal speech, No behavioral changes, No burning sensations, No confusion, No convulsions, No disequilibrium, No dizziness, No localized weakness, No frequent falls, No headache(s), No lack of coordination, No loss of vision, No memory loss, Yes numbness, No other visual disturbances, No radicular pain, No restless legs, No sensory deficit, No syncope, Yes tingling, No tremor(s), No weakness and No other Exam Const General: cooperative and anxious Orientation: alert, awake and oriented x3 Chest Other: Between the 1 and 2 o'clock position, 2 cm off the areolar border there is a persistent mass in the right breast. He also has particular tenderness in the right upper outer quadrant of the breast tissue. There is additional firmness but no discrete mass at the 8 o'clock position directly adjacent to the areolar border. There is general firmness of the axilla just below the tail of the breast on the right. The left breast is unremarkable as is the axilla. Extrem Other: Patient's right upper extremity measures 35 cm 8 cm superior to the elbow and 30.5 cm 8 cm inferior to the elbow Assessment and Plan Assessment and Plan (1) Breast mass, right: Status: Acute Comment: 43-year-old female with history of right invasive ductal carcinoma metastasized to the right axilla status post 4 cycles neoadjuvant therapy who presents for surgical planning. She has not had any posttreatment imaging at this point, but her exam suggests persistence of the primary masses in her breast tissue. Her axillary exam is more difficult to define given her habitus. Along these lines I would like to perform a post neoadjuvant MRI to evaluate for treatment effect. Based on her exam and patient's initial diagnosis I have recommended we plan to proceed with right modified radical mastectomy. The procedure was described in detail along with the expectation for a postoperative observational stay. Patient and her state that they are understanding of this recommendation was to proceed as described. I did offer for consideration of possible reconstructive options but patient and her are not inclined. They do state they are hopeful to be in attendance at their eldest daughter's wedding who is due to wed on 08/12/2023. Plan: ? Right modified radical mastectomy targeting the week of 07/14/2023 with postoperative observational hospitalization ? MRI of bilateral breasts and axillae Orders: Orders Breast Bilateral W/O and W Today C50.911 - Malignant neoplasm of unspecified site of right female breast, C77.3 - Secondary and unspecified malignant neoplasm of axilla and upper limb lymph nodes, N63.10 - Unspecified lump in the right breast, unspecified quadrant I have examined the patient the following changes are noted: Patient completed MRI which showed that her disease burden is largely stable following neoadjuvant therapy procedure and postprocedure expectations?including observational stay were reviewed. Either patient nor her spouse had further questions. Consents were confirmed. Will now proceed to the operating room for right modified radical mastectomy as discussed above.
--- NOTE | 2023-07-15 07:30 | BREAST_PTH ---
PATIENT: AZAR SANCHEZ LOC: MS3 U#:[id number] AGE/SX: 43/F ROOM: [facility] [place] RE07/15/[address]: Dr. Ryan Carter MD : 1980 BED: 1 DIS: 07/16/2023 SPEC #: [id number] RECD: 07/15/23 11:01 STATUS: EDILSON SYLVAIN #: [id number] DORIAN: 07/15/23 07:[address]: Ryan Carter DEPT: SURGICAL PATHOLOGY RECD BY: Linda Maria ENTERED: 07/15/23 11:25 SP TYPE: BREAST OTHR DR: Dr. Nathan Gallegos, Tissues: A - Right breast, NOS B - Axillary lymph node, NOS C - Skin of breast, NOS Procedures: Surgery Specimen Level IV Surgery Specimen Level V Surgery Specimen Level HEADER OPERATION: Right mastectomy modified with axillary dissection PRE-OP DIAGNOSIS: Breast mass, right TISSUE SUBMITTED: A- Right breast- short suture linares superior, long suture linares lateral, B- Right axillary contents, C- Superomedial skin right breast MICROSCOPIC DIAGNOSIS A. 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 See cancer template below. B. Lymph nodes of right axilla, regional lymphadenectomy: Macrometastatic carcinoma present in 10 out of 33 lymph nodes. C. Superomedial skin of right breast, excision: Skin and soft tissue, negative for carcinoma. AM/mr 07/22/2023 COMMENT A. Immunohistochemistry ([id number]) supports the above diagnosis. INVASIVE BREAST CANCER SUMMARY: Procedure - excision with wire guidance Specimen: Type - total breast Size - 24.0 x 21.0 x 5.0 Laterality - right Tumor: Site - See Below Size - Largest tumor 3.0 x 2.5 x 2.5cm (central to medial portion of breast) Second tumor 2.5 x 2.5 x 2.0cm (outer to central portion of breast) Third tumor 1.0 x 1.0 x 0.8cm (close to posterior margin of resection) Histologic type - invasive ductal carcinoma. Focality - three foci of carcinoma (see above). Histologic Grade ([place] grade): Glandular/tubular differentiation -3 score Nuclear pleomorphism - 2score Mitotic count - 1 score Overall grade - 2 (score of 6) Ductal carcinoma in situ: Present Estimated quantification (% of tumor volume) - 10% Number of blocks - 19 of 20 blocks (EIC present) Architectural patterns - Solid and cribriform Nuclear grade - grade 2/3 Necrosis - (expansive comedo necrosis)- present Lobular carcinoma in situ (LCIS) - Not present Tumor extension: Skin - free of carcinoma Nipple - free of carcinoma Skeletal muscle - not present Margins: Distance of invasive carcinoma from closest margin - 0.3 mm from posterior margin. Distance of in situ carcinoma from closest margin - 11.0 mm from posterior margin. Lymph nodes: Number of sentinel lymph nodes examined - 0 Total number of lymph nodes examined (sentinel and nonsentinel) - 33 Metastatic carcinoma present in - 10 of 33 lymph nodes Size of largest metastatic deposit - 2.5cm Extranodal extension - not identified See specimen `B' Treatment effect: Minimal change/effect. Lymphvascular invasion - not identified Additional pathologic findings - Fibrocystic change Ancillary studies - previously performed on section of tumor ([id number] / [id number]). ER - >95%, moderate and strong intensity OH - 60-70%, strong intensity Her2 nathaly - 0-1+ (negative) Her2 by dual ROSEANN - not performed Microcalcifications - Present in ductal carcinoma in situ Clinical history - Mass of breast PATHOLOGIC STAGE: T2 N3a Mx The above summary is in compliance with [employer] (CAP) Cancer Protocols Checklist and [place] Joint Committee on Cancer (AJCC), Staging Manual, 8th Ed. MICROSCOPIC DESCRIPTION Slides are reviewed. GROSS DESCRIPTION A. Received in fixative is one container labeled with the patient's name and designated Right breast. The specimen consists of a mastectomy specimen consisting of breast tissue with overlying skin ellipse. Breast tissue measures 21.0 x 24.0 x 5.0cm and skin ellipse measures 17.0 x 6.0cm. Nipple measures 1.5cm in greatest dimension. The specimen is inked as follows: posterior - black, superior - blue, inferior - green, medial - red and lateral - orange. More dictation will follow after additional fixation. SJ/mr 07/15/23 Two small raised nodules are noted in the areola measuring 0.3 and 0.6cm in greatest dimension. Sections reveal three indurated mass, one in the central to medial portion of the breast measuring 2.5 x 3.0 x 2.5cm. This mass is 1.5cm away from the closest posterior margin. Second mass is noted in close to outer to central portion of the breast tissue measuring 2.5 x 2.5 x 2.0cm. A metallic clip is noted in this second mass and this mass is 3.0cm away from the closest posterior margin. Third nodular mass is noted in the outer quadrant and measures 1.0 x 1.0 x 0.8cm. This mass is 0.3cm away from the closest posterior margin. Section of the rest of the specimen reveal vyas-yellow adipose cut surfaces mixed with vyas-white fibrous areas. Pick Up Worker sections are submitted in 20 cassettes as follows: 1- Nipple, entirely submitted, 2&3- Skin lesions in the areola, each bisected in its entirety, 4- Perpendicular superior, inferior margins and skin, 5- Perpendicular medial, lateral, posterior margins, 6-9- Larger tumor, medial portion of the breast tissue, 10&11- Pick Up Worker section adjacent to the largest tumor, 12-14- Second largest tumor in the lateral portion of the breast, 15&16- Pick Up Worker section adjacent to the second tumor, 17&18- Smallest tumor, including closest posterior margin, Second and third tumor are submitted in entirety, 19&20- Pick Up Worker section away the tumors. Sections are submitted after additional fixation. /mr 07/16/23 B. Received in fixative is one container labeled with the patient's name and designated Right axillary contents. The specimen consists of a piece of adipose tissue measuring 13.0 x 9.0 x 4.0cm. Multiple nodules consistent with lymph nodes are noted. Largest lymph node measures 3.0 cm in greatest dimension. Many of the lymph nodes are grossly involved by the tumor. Pick Up Worker sections are submitted in 20 cassettes as follows: 1 to 3 - each cassette containing one lymph node, 4 to 6 - each cassette containing multiple lymph nodes, 7 & 8 - 1 serially sectioned lymph node, 9 & 10 - 1 serially sectioned lymph node, 11&12- One serially sectioned lymph node, 13- One bisected lymph node, 14- Two lymph nodes, 15-17- One serially sectioned lymph node, 18-20- One serially sectioned lymph node, largest lymph node. Lymph node are submitted in entirety. Section will be submitted after additional fixation. NAMRATA/ 07/15/2023 C. Received in fixative is one container labeled with the patient's name and designated Superomedial skin right breast. The specimen consists of a piece of vyas-white skin measuring 7.0 x 1.2cm and up to 1.0cm in thickness. No skin lesion is identified. Sections do not reveal any mass lesion. Pick Up Worker sections are submitted in two cassettes. Sections are submitted after additional fixation.NAMRATA/ 07/16/23 Ischemic Time: 1 minute Fixation Time: 10 hours TC:0 CPT: 87866,14722,88663
[2023-07-15] MEDS: Cefazolin 2 GM in 0.9% Normal Saline (100mL Bag) 100 ML IV (07:42)
[2023-07-15] MEDS: Bupiv/Epi 0.25% 30 ML Vial (11:45)
[2023-07-15] MEDS: 0.9% Normal Saline (1000mL) 1,000 ML 75 ML IV (16:21)
[2023-07-15] MEDS: 0.9% Saline Lock 10 ML Syringe IV (17:46)
[2023-07-15] MEDS: Ketorolac 30 MG/ML Syringe IV ×2 (17:46→23:58)
--- NOTE | 2023-07-15 18:00 | OP.PCM_ITS ---
Report of Operation Date of Procedure: 07/15/23 Pre-Operative Diagnosis: Multifocal right breast cancer (IDC) with axillary met astasis status post neoadjuvant therapy Post-Operative Diagnosis: Same Surgery/Procedure Performed:: Right modified radical mastectomy Description of Surgical Findings:: ? Moderately large breasts that were not affixed to the chest wall deeply ? Functional long thoracic and thoracodorsal nerves of the axilla Surgeon: Ryan Carter nurse examiner: Marco Tipton nurse examiner: Danette Bass Type of Anesthesia: General/Supplemental Anesthesiologist: Ashwin Maynard Specimen's removed: 1. Right breast (oriented short superior long lateral) 2. Right axillary contents 3. New right superomedial skin margin Drains: 15 [place] round Manny drain x 2 Estimated Blood Loss (mL): 100 Description of Procedure: Operation performed with curative intent: Yes Resection was performed within the boundaries of the axillary vein, chest wall (serratus anterior), and latissimus dorsi: Yes Nerves identified and preserved during dissection (select all that apply): Long thoracic, thoracodorsal nerve, branches of intercostobrachial nerve Level III nodes were removed: No After appropriate identification preoperative holding area and confirmation of consent patient was brought to the operating room where she was positioned supine on the operating room table. There she underwent induction of general anesthesia and was administered preoperative antibiotics. She was positioned with her right upper extremity extended and underwent prepping and draping in usual sterile fashion. A formal timeout followed to confirm patient and procedure. The patient's mastectomy incision was planned in an elliptical fashion to incorporate the nipple areolar complex as well as her prior biopsy site laterally. This ellipse was then created sharply with a scalpel and was deepened through the dermal layer with electrocautery. Then the breast tissue was carefully removed from the overlying subcutaneous tissue in an effort to maintain consistent thickness of the soft tissue flaps in all directions. This was achieved through careful tension and counter tension retraction. Vessels were selectively cauterized if they were inadvertently entered or appear to be in the path of dissection. The breast tissue and fascia were taken off the underlying pectoralis major muscle with the use of electrocautery. Once we reached the lateral border of the pectoralis major muscle the lateral aspect was divided with electrocautery and the specimen was oriented in a short superior/long lateral orientation with marking sutures before it was passed off the operative field for pathologic processing. Dissection was then carried more laterally and deeply below the level of the clavipectoral fascia until we entered the formal domain of the right axilla. Dissection proceeded posteriorly until we encountered the intercostobrachial nerve traversing obliquely across the axilla. Superiorly we first identified the axillary artery and then just inferior to this structure, the axillary vein. The inferior border of this vessel was skeletonized and the packet of lymph nodes was dissected free of the vessel. Structures that appeared to represent lymphatic channels were clipped and sharply divided. Gradually we were able to identify the long thoracic nerve more medially and the thoracodorsal neurovascular bundle more laterally. Both nerves were checked repeatedly by quickly pinching them between forceps to confirm their integrity as we proceeded with dissection of the lymph node packet around the structures. An effort was also made to spare the integrity of the patient's intercostobrachial nerve plexus. Several secondary branches were sacrificed to facilitate complete removal of the lymph node packet with the main trunk was preserved intact. Ultimately the contents of the axilla were freed and the specimen was passed off the operative field for pathologic processing. Both the chest wall and the axillary concavity were irrigated with sterile water. Hemostasis was obtained with selective electrocautery. Then 15 [place] round Manny drains x 2 were passed into the surgical cavity to lie along the inframammary line medially as well as within the recess of the axilla laterally. They were brought out through separate stab incisions in the right inferior region of our surgical cavity and were secured at the skin using 3-0 nylon suture. A new superior medial margin of skin was taken from the upper skin flap after repositioning the patient head up. The flaps were then approximated at the dermal level using interrupted 2-0 Vicryl sutures. Lastly the skin was closed with a running subcuticular technique. 20 mL of 0.25% bupivacaine with epinephrine were infiltrated into these flaps for postoperative pain relief. The skin was cleansed and Steri-Strips were applied to help maintain apposition of the skin edges. Fluffed gauze and a Bashir bandage were applied for the final portion of the dressing. Patient's drain tubing was connected to Miky-Prieto drains x 2. Patient was then awoken from her general anesthetic and taken the PACU in stable condition for ongoing recovery. Complications None Admit VTE Documentation VTE Mechan Device Prophylaxis: SCD's Procedures Integumentary 16xxx-193xx: [id number] Mast mod rad
[2023-07-15] MEDS: Acetaminophen 500 MG Tablet PO (20:29)
[2023-07-16 00:04] VITALS: BP 99/57; PULSE 67; RESP 16; TEMP 36.8; O2SAT 97
[2023-07-16] MEDS: Ketorolac 30 MG/ML Syringe IV ×2 (05:10→11:31)
[2023-07-16] MEDS: 0.9% Normal Saline (1000mL) 1,000 ML 75 ML IV (06:00)
[2023-07-16 06:18] VITALS: BP 106/68; PULSE 88; RESP 16; TEMP 36.8; O2SAT 95
[2023-07-16 08:13] VITALS: BP 122/66; PULSE 90; RESP 16; TEMP 36.6; O2SAT 94
--- NOTE | 2023-07-16 11:51 | PCM.DC ---
Discharge Instructions Diet Discharge Diet: No restrictions Activity Discharge Activity: May Drive (No driving while using narcotic pain medication) May shower in (days): 1 Lifting Restrictions: Limit lifting with right upper extremity to no more than 5 pounds Dressing / Incision Call your doctor if your incision/area has: Continuous Slow Oozing, Sudden Increased Bleeding, Increased Pain/ Swelling, Increased Redness, Foul Smelling Discharge and Swelling at the incision site Call your doctor if you observe: Fever of 101 or Higher Suture Line Care: Avoid Pulling/Pushing Remove Dressing in: 1 day Cleanse incision/area with: Soap & Water Additional Dressing/Incision Instructions:: Please leave Steri-Strips intact until they fall off spontaneously or are taken off at your follow-up visit Follow Up Care Please Follow Up With: Ryan Carter MD When: 7-10 days postop Test Results: Test results from this visit will be discussed in further detail at your follow-up appointment, if applicable. Discharge Plan Admission Admit Date/Time: 07/15/23 12:47 Primary Reason for Your Visit: RIGHT BREAST CA Attending Provider: Ryan Carter Primary Care Provider: Nathan Gallegos Instructions Additional Instructions / Restrictions: Please record 24-hour output from surgical drains and notate this volume as it relates to each drain respectively. Bring this log to your follow-up visit. Please notify general surgery office immediately of any concerns of drain malfunction or leakage. Discharge Orders/Prescriptions Prescriptions: New oxycodone 5 mg Tablet 5 mg PO Q6H PRN PRN (Reason: Pain Score 6-10) 3 Days Qty: 10 0RF Continued lidocaine-prilocaine 2.5-2.5 % cream 1 applic topical ONCE PRN (Reason: port access) 30 Days Qty: 30 2RF ondansetron 8 mg tablet,disintegrating 8 mg PO Q8H PRN (Reason: nausea and vomiting) Qty: 30 1RF Discontinued oxycodone-acetaminophen 5-325 mg tablet 1 tab PO Q8H PRN (Reason: pain) Referrals / Follow Up: Nathan Gallegos DO [Primary Care Provider] - Disposition Disposition (needs filled in before D/C Order can be placed): Home, Self Care
--- NOTE | 2023-07-16 11:59 | PCM.DC.SUM ---
Providers Date of Admission: 07/15/23 Primary Care Physician: Dr. Nathan Gallegos, Reason For Visit: BREAST CANCER Medications at Discharge Home Medications lidocaine-prilocaine 2.5 %-2.5 % topical cream 1 applic topical ONCE PRN port access 30 days #30 grams 04/03/23 ondansetron 8 mg disintegrating tablet 8 mg PO Q8H PRN nausea and vomiting #30 tabs 04/03/23 oxycodone 5 mg tablet 5 mg PO Q6H PRN PRN Pain Score 6-10 3 days #10 tabs 07/16/23 Hospital Course Operations - (Right modified radical mastectomy) Summary of Care Provided Hospital Course: Patient is a 43-year-old female who underwent right modified radical mastectomy under general anesthesia 07/15/2023. She was admitted postoperatively for monitoring. She was uneventfully advanced to a regular diet the evening of postoperative day 0 and remained well-controlled for pain. Her vital signs remained stable and her exam in the morning of postoperative day 1 was reassuring. Postoperative wound care, activity, and follow-up instructions were reviewed. Upon hearing her expressed comfort with these instructions she was granted discharge to home early afternoon postoperative day 1. Physical Exam Const alert, oriented x3 and no apparent distress Chest Chest Narrative: STEFFANIE drains were both patent draining serosanguineous fluid with some clotted blood in the collection container. Resp normal respiratory effort Skin Skin Narrative: Patient with slight bruising centrally over her sternum, otherwise Steri-Strips remain intact no evidence of underlying subcutaneous hematoma. Weight / BMI Weight Weight: 251 lb 5.231 oz Body Mass Index (BMI) 41.8 D/C Instructions Discharge Diet: No restrictions May shower in (days): 1 Call your doctor if your incision/area has: Continuous Slow Oozing, Sudden Increased Bleeding, Increased Pain/ Swelling, Increased Redness, Foul Smelling Discharge and Swelling at the incision site Call your doctor if you observe: Fever of 101 or Higher Suture Line Care: Avoid Pulling/Pushing Cleanse incision/area with: Soap & Water Additional Dressing/Incision Instructions: Please leave Steri-Strips intact until they fall off spontaneously or are taken off at your follow-up visit Please Follow Up With: Ryan Carter MD When: 7-10 days postop Meaningful Use Info Meaningful Use Meaningful Use Diagnoses (Choose all that apply): None applicable Ischemic Stroke Statin Dosing Therapy Reference: STATIN DOSE THERAPY REFERENCE: * Patients > 75 years receive moderate or high dose statin therapy. * Patients 75 years or YOUNGER should receive HIGH intensity statin dose unless contraindicated. You will be required to document reason for non-treatment if statin daily dose does not meet guidelines. HIGH DOSE STATIN THERAPY DAILY Atorvastatin > than or = to 40 mg Rosuvastatin > than or = to 20 mg Amlodipine + Atorvastatin > than or = to 2.5/40 mg Ezetimibe + Simvastatin 10/80 mg Simvastatin 80mg Discharge Plan Admission Admit Date/Time: 07/15/23 12:47 Primary Reason for Your Visit: RIGHT BREAST CA Attending Provider: Ryan Carter Primary Care Provider: Nathan Gallegos Instructions Additional Instructions / Restrictions: Please record 24-hour output from surgical drains and notate this volume as it relates to each drain respectively. Bring this log to your follow-up visit. Please notify general surgery office immediately of any concerns of drain malfunction or leakage. Discharge Orders/Prescriptions Prescriptions: New oxycodone 5 mg Tablet 5 mg PO Q6H PRN PRN (Reason: Pain Score 6-10) 3 Days Qty: 10 0RF Continued lidocaine-prilocaine 2.5-2.5 % cream 1 applic topical ONCE PRN (Reason: port access) 30 Days Qty: 30 2RF ondansetron 8 mg tablet,disintegrating 8 mg PO Q8H PRN (Reason: nausea and vomiting) Qty: 30 1RF Discontinued oxycodone-acetaminophen 5-325 mg tablet 1 tab PO Q8H PRN (Reason: pain) Referrals / Follow Up: Nathan Gallegos DO [Primary Care Provider] - Disposition Disposition (needs filled in before D/C Order can be placed): Home, Self Care Charges/Coding Visit Charges Inpatient E&M: 47321 Disch Hosp
--- NOTE | 2023-07-16 12:23 | CASEMGMT ---
[facility] NOTE: Pt being discharged. RN CM to room. Pt in bathroom. in room and spoke w/this RN GUERRERO. He states he has been instructed/taught how to manage STEFFANIE drain care. He denies having any discharge needs/concerns for pt. Dorys BSN [facility]
[2023-07-16] MEDS: 0.9 % NaCl (Sterile) Posiflush 10 mL IV (12:25)
[2023-07-16 12:36] VITALS: BP 126/78; PULSE 85; TEMP 36.6; O2SAT 96
== END 2023-07-16 12:51 | disposition home or self-care (01) ==
LOC: SDC 13:50 → MS3 13:50
PROVIDERS: Admitting Provider Surgery; PCP Family Medicine; Referring Provider Surgery; Visit Provider Surgery
PROC: (CPT 19307; principal; 2023-07-15 07:15)
DX: C50.911 Malignant neoplasm of unspecified site of right female breast (principal); C77.3 Secondary and unspecified malignant neoplasm of axilla and upper limb lymph nodes; Z92.21 Personal history of antineoplastic chemotherapy
CPT/HCPCS: 19307; 00404; 88305; 88307; 88309; 88341; 88342; 94668; 96361; 96374; 96376; 99221; A4648; J7030; J7120; A4216; G0378; J2405; J3490

== ENCOUNTER 2023-07-19 11:16 | Emergency (ER) | payer OTHER, SELFPAY ==
[2023-07-19 11:17] VITALS: BP 138/78; PULSE 88; RESP 16; TEMP 36.4; O2SAT 99; BMI 41.5
--- NOTE | 2023-07-19 11:43 | EX.ED.DYSGE1 ---
HPI History of Present Illness Chief Complaint: Wound Check Informant: patient Narrative Narrative: 43-year-old female had a mastectomy this past week, her 2 drains have been draining well until this morning. They drained them last night, she was having 30 or 40 cc of output in the either STEFFANIE drain, and this morning there is only 10 cc present and no more drainage. She is not having any significant pain, nor is she having new swelling in her chest wall, nor is she having any leakage of fluid around the drains from their insertion sites. The patient significant other thinks it may be a blood clot in one of them. She denies any fevers or chills and otherwise feels well. 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 Encounter for education Leg cramps Non-smoker Port-A-Cath in place Shortness of breath on exertion Wears glasses Home Medications lidocaine-prilocaine 2.5 %-2.5 % topical cream 1 applic topical ONCE PRN port access 30 days #30 grams 04/03/23 [Rx Last Taken 07/15/23] oxycodone 5 mg tablet 5 mg PO Q6H PRN PRN Pain Score 6-10 3 days #10 tabs 07/16/23 [Rx Last Taken 07/16/23] cephalexin 500 mg capsule 500 mg PO Q6 #28 CAPSULES 07/19/23 [Rx Last Taken Unknown] Allergy/AdvReac Type Severity Reaction Status Date / Time No Known Allergies Allergy Verified 07/15/23 06:27 Family History Mother Hypertension Cancer skin Surgical History delivery delivered H/O dilation and curettage Social History Smoking Status: Never smoker alcohol intake: never substance use type: does not use ROS ROS ED Constitutional Constitutional ED: Denies chills or fever(s) Cardiovascular Cardiovascular: Denies chest pain Respiratory/Chest Respiratory/Chest: Denies dyspnea Gastrointestinal Gastrointestinal: Denies nausea or vomiting Neurologic Neurologic: Denies paresthesias or weakness EXAM Physical Exam Const Vital Signs: 07/19/23 11:17 Temperature 97.6 F L Temperature Source Temporal Pulse Rate 88 Respiratory Rate 16 Blood Pressure 138/78 H Blood Pressure Mean 98 Pulse Ox 99 Oxygen Delivery Method Room Air Positive well nourished and well developed Constitutional Narrative: Well-appearing in no distress, pleasant, conversive General Appearance ED: well developed and NAD Chest Wall inspection of chest normal and palpation of chest normal Chest Narrative: STEFFANIE drain insertion site right chest wall is very benign there is no tenderness, swelling, signs of infection, nor is there any discharge expressible from around the drains at all, the padding/dressing is dry. There is serosanguineous discharge present within the drainage tubes, no purulent material. Neuro oriented x3, CN's II-XII intact bilaterally, no sensory deficits noted and gait normal Motor Exam: strength 5/5 throughout Psych mental status grossly normal Skin no rashes or lesions noted Skin Narrative: See above no signs of infection around right chest wall wounds MDM MDM MDM Narrative Medical decision making narrative: Dr. Carter saw the patient, we do not need to do anything with the drain at this time but he is requesting that we prescribe the patient staphylococcal antibiotic coverage for 7 days and she will follow-up in the office after the weekend. Will prescribe cephalexin. Management Discussion w/another healthcare provider: Structural Analysis Engineer (Discussed with the patient surgeon Dr. Carter who will evaluate in ED) Discharge Plan Triage Chief Complaint: Wound Check ED Provider: Markie Lynn Dx/Rx/DC Orders Clinical Impression: Encounter for postoperative wound check, Folliculitis Instructions: ED Wound Check (Infection) Prescriptions: New cephalexin [cephalexin] 500 mg capsule 500 mg PO Q6 Qty: 28 0RF No Action lidocaine-prilocaine 2.5-2.5 % cream 1 applic topical ONCE PRN (Reason: port access) 30 Days Qty: 30 2RF oxycodone 5 mg Tablet 5 mg PO Q6H PRN PRN (Reason: Pain Score 6-10) 3 Days Qty: 10 0RF Primary Care Provider: Nathan Gallegos Referrals: Nathan Gallegos DO [Primary Care Provider] - Ryan Carter MD [Med Staff - Active Staff] - Keep Leti appointment Disposition Disposition: Home, Self Care
--- NOTE | 2023-07-19 13:42 | HP.PCM_ITS ---
HPI - General General Date of Service: 07/19/23 HPI Narrative AZAR SANCHEZ, is a 43 F who presents to [facility] after her reached out to the hospital with questions related to her surgical drains. Patient is recently postop from a right modified radical mastectomy with me on 07/15/2023. He shared that everything had been going well until this morning when they noticed that the drain output for the patient's axillary drain had dropped off and the drain tubing appeared clogged. It was at this point that I advised the couple to present for evaluation. Mrs. Sanchez shares that she has had no increase in pain and specifically denies send the electrical-like pain in her arm. She notes some mild swelling of her axilla. She denies any fevers or significant drainage. 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 Encounter for education Leg cramps Non-smoker Port-A-Cath in place Shortness of breath on exertion Wears glasses Home Medications lidocaine-prilocaine 2.5 %-2.5 % topical cream 1 applic topical ONCE PRN port access 30 days #30 grams 04/03/23 [Rx Last Taken 07/15/23] oxycodone 5 mg tablet 5 mg PO Q6H PRN PRN Pain Score 6-10 3 days #10 tabs 07/16/23 [Rx Last Taken 07/16/23] cephalexin 500 mg capsule 500 mg PO Q6 #28 CAPSULES 07/19/23 [Rx Last Taken Unknown] Allergy/AdvReac Type Severity Reaction Status Date / Time No Known Allergies Allergy Verified 07/15/23 06:27 Family History Mother Hypertension Cancer skin Surgical History delivery delivered H/O dilation and curettage Social History Smoking Status: Never smoker alcohol intake: never substance use type: does not use Vital Signs Vital Signs Vital Signs: 07/19/23 11:17 Temperature 97.6 F L Temperature Source Temporal Pulse Rate 88 Respiratory Rate 16 Blood Pressure 138/78 H Blood Pressure Mean 98 Pulse Ox 99 Oxygen Delivery Method Room Air Weight Weight: 250 lb Body Mass Index (BMI) 41.5 Physical Exam Const alert and oriented x3 Chest Chest Narrative: Patient with Bashir bandage in place and STEFFANIE drains pinned to Bashir bandage. There is some significant bruising that persists along patient's incision?particularly medially. There is some blanchable erythema with evidence of folliculitis in this region as well. I do not appreciate any significant fluid pockets along the full length of patient's surgical site. There is some mild fullness of the axilla but this appears to all be soft tissue swelling. Patient's STEFFANIE drains are draining serosanguineous fluid and there is clotted blood in the tubing of both drains?but more prominently featured in the lateral axillary drain. Assessment & Plan Assessment/Plan (1) Status post mastectomy: PLAN: Patient is postoperative day 4 from right modified radical mastectomy. Overall she appears to be healing as expected. Today's impromptu visit is on the account of concern for suboptimal drainage from her right axillary drain. Overall her exam is reassuring that she is well-healing, but I do have concern for some cellulitic changes medially along her mastectomy closure. I have advised for her to continue regular showering and keeping this area dry. I have asked her to also abstain from any activity that would risk exposure to dirt/dander. Lastly, I have recommended that we complete a course of antibiotics for this cellulitis and plan to keep our follow-up visit in 1 week. (2) Encounter for postoperative wound check: PLAN: Patient with partially occluded axillary drain tubing due to clotted blood. Both drains were stripped in their entirety and there was no additional clot observed within the tubing. Both drains appear to be in position at the chest wall and are draining serosanguineous fluid. Patient and her report appropriate management of these drains. (3) Folliculitis: PLAN: Patient with evidence of folliculitis on exam?this is present with blanchable erythema along the medial aspect of her mastectomy closure. I have asked emergency medicine to prescribe a 7-day course of oral antibiotics for skin shweta coverage. Charges/Coding Visit Charges Office Visits / Consults: 64060 ED Visit; Low/Mod Severity
[2023-07-19 13:48] VITALS: BP 134/70; PULSE 88; RESP 16; TEMP 36.9; O2SAT 99
== END 2023-07-19 13:52 | disposition home or self-care (01) ==
PROVIDERS: Emergency Provider Emergency Medicine; PCP Family Medicine; Visit Provider Emergency Medicine
DX: Z51.89 Encounter for other specified aftercare (principal); L73.9 Follicular disorder, unspecified
CPT/HCPCS: 99282

== ENCOUNTER → 2023-07-28 | Outpatient (CLI) | payer OTHER, SELFPAY | END | disposition home or self-care (01) | LOC: LABSPEC 11:03 | PROVIDERS: PCP Family Medicine; Referring Provider Surgery; Visit Provider Surgery | DX: T81.49XA Infection following a procedure, other surgical site, initial encounter (principal); X58.XXXA Exposure to other specified factors, initial encounter | CPT/HCPCS: 87070; 87075; 87077; 87186; 87205 ==

== ENCOUNTER 2023-10-27 14:30 | Outpatient (RCR) | payer SELFPAY, OTHER ==
--- NOTE | 2023-09-23 09:35 | HP.OTEVAL ---
Patient's Visit Information Visit Information Visit Information: AZAR SANCHEZ is a 43 year old F, referred to Occupational Therapy by Dr. Mynor Moore MD, with a diagnosis of malignant neoplasm of unspecified site R breast. 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 Pt with sx 07/15/23 pt did have incision site infection. Pt had drain tubes which were removed 08/11/23. Pt current surgical wound is healed. pt did chemo prior to surgery 4 treatments beginning in Mar ending end of may. Pt is going to see radiation Dr this evening to see what they say. Pt reports R UE as well as BLEs swelling since chemo tx. pt has not yet tried any compression garments at this time. pt states she was sleeping in a recliner chair at home until recently when she began to sleep in the bed again once incision healed up and drains out. Objective Objective/Observation: pt arrives demonstrating full ROM of BUEs however does report slight tightness at rib cage with UE movement. BLE swelling slight swelling of RUE. ROM ROM Comments: slight pulling with shoulder abduction and ER at rib cage region all ROM within normal limits at this time Lymphedema (Circumferential Measure) Wrist: R 17 L 17 cm Lower forearm: R 20.5 L 20 cm Largest forearm: R 29.0 L 28 cm Elbow: R 30.5 L 29 cm Largest humerus: R 40 L 38 cm Axcillary: R 47 L 45 cm Mid-foot: R 25 L 25 cm Ankle: R2 6 L 26 cm Lower calf: R 29 L 28.5 cm Largest calf: R 44 L 44 cm Below knee: R 43 L 41 cm Above knee: R 59 L 57 cm Goals Goal: Patient will demonstrate a 20% reduction in edema by discharge: Yes Goal: Patient will demonstrate adequate knowledge of self-massage by the end of the second week.: Yes Goal: Patient will demonstrate adequate knowledge of skin care and precautions by the end of the first week.: Yes Goal: Patient will demonstrate adequate knowledge of therapeutic exercises by discharge.: Yes Goal: Patient will select an appropriate compression garment and demonstrate adequate knowledge of correct donning technique, care and wearing schedule by discharge.: Yes Goal: Patient will voice understanding of need to replace compression garment every four to six months by discharge.: Yes Goal: Patient will demonstrate ROM WFL by discharge.: Yes Rehabilitation General Assessment: This 43 year old female presents s/p masectomy to R breast removal of lymph nodes in axillary region, incision site infection and STEFFANIE drains which were taken out 08/11/23. pt does demonstrate full ROM of BUEs however is starting to feel slight tightness around rib cage region under axila during shoulder elevatoon/ abduction. swelling of RUE as well as BLEs s/p chemo tx and sx. Pt would benefit from OT services 3 to 4 visits in order to assure understanding of HEP in lymph exercise as well as self massage, precautions and skin protection. Skilled OT to assure proper compression garnments as well as wear and tech to don and doff for management of lymphedema. Rehabilitation Potential: Good Anticipated Interventions Anticipated Interventions: A/AAROM/PROM, Edema Control, Scar Care, Massage, Triggerpoint Release, Joint Protection/Energy Conservation, Ergonomic Education, Education re Diagnosis, Manual Lymph Drainage, Education re Life-long lymphedema Management, Education re Skin Care and Precautions, Education re Self Massage Techniques, Education re Correct Donning Tech,Care&Wearing Sched Comp Garments, Caregiver Training and Home Program Visit Plan Frequency: 3 to 4 visits Duration: 4-6 Months General Plan: lymph AROM exercise self massage for lymph drainage compression garment selection, wear and tech to don and doff skin care and protection lymphedema signs and symptoms HEP TEXT: Thank you for the opportunity to evaluate your patient. For Medicare and Medicare HMO plans, please review the plan of care and approve it. It will need to be FAXED BACK to us at [phone] for Medicare purposes. Please let me know if there are questions or concerns regarding this plan of care. Physician Signature: Date:
== END 2023-10-27 19:00 | disposition home or self-care (01) ==
LOC: OT 14:30
PROVIDERS: PCP Family Medicine; Referring Provider Internal Medicine Medical Oncology; Visit Provider Internal Medicine Medical Oncology
DX: C50.911 Malignant neoplasm of unspecified site of right female breast (principal); C77.3 Secondary and unspecified malignant neoplasm of axilla and upper limb lymph nodes
CPT/HCPCS: 97166; 97530

== ENCOUNTER → 2023-10-30 | Outpatient (CLI) | payer OTHER, SELFPAY ==
[2023-11-04 14:10] LABS: HPV APTIMA, High Risk Negative (Negative)
== END | disposition home or self-care (01) ==
PROVIDERS: PCP Family Medicine; Referring Provider Obstetrics & Gynecology; Visit Provider Obstetrics & Gynecology
DX: Z12.4 Encounter for screening for malignant neoplasm of cervix (principal)
CPT/HCPCS: 87624; 88175; G0145

== ENCOUNTER → 2023-11-05 | Outpatient (CLI) | payer SELFPAY, OTHER ==
--- NOTE | 2023-11-05 09:34 | US_ITS ---
INDICATION: breast cancer, rule out ovarian disease EXAMINATION: Ultrasound US Pelvis Non OB Limited With Transvaginal Imaging TECHNIQUE: Transabdominal pelvic ultrasound was performed. Grayscale, spectral waveform, and color flow Doppler evaluation of the adnexa. COMPARISON: No relevant prior comparison study available FINDINGS: UTERUS: Anteverted. The uterus measures 8.8 x 6.4 x 5.1 cm. The uterus is heterogeneous. There is a small mass in the anterior wall of the uterus measuring about 1.7 cm consistent with small uterine fibroid. There is another mass in the body of the uterus measuring about 2.5 cm. There is however nonspecific mild fluid within the endometrial cavity. The endometrial stripe measures 8 mm in AP diameter which is within normal limits for a premenopausal patient. RIGHT OVARY: 2.1 x 2.3 x 1.4 cm. Non-enlarged, normal echogenicity. There is normal arterial inflow and venous outflow present in the right ovary. LEFT OVARY: 2 x 1.9 x 1.1 cm. Non-enlarged, normal echogenicity. There is normal arterial inflow and venous outflow present in the left ovary. FREE FLUID: None. US/Pelvic w/ Transvaginal IMPRESSION: 1. Uterine fibroids. 2. Nonspecific mild fluid within the endometrial cavity. Electronically Signed: Delta Betancourt MD at 16:08 EDT ,
== END | disposition home or self-care (01) ==
LOC: US 09:33
PROVIDERS: PCP Family Medicine; Referring Provider Obstetrics & Gynecology; Visit Provider Obstetrics & Gynecology
DX: C50.911 Malignant neoplasm of unspecified site of right female breast (principal); C77.3 Secondary and unspecified malignant neoplasm of axilla and upper limb lymph nodes
CPT/HCPCS: 76830; 76856

== ENCOUNTER 2023-11-25 10:15 | Outpatient (CLI) | payer OTHER, SELFPAY ==
[2023-11-25] MEDS: Alteplase 2 MG/2 ML Vial IV (12:50)
== END 2023-11-25 23:59 | disposition home or self-care (01) ==
LOC: MEDOUTP 10:15
PROVIDERS: PCP Family Medicine; Referring Provider Obstetrics & Gynecology; Visit Provider Obstetrics & Gynecology
DX: Z90.721 Acquired absence of ovaries, unilateral (principal)
CPT/HCPCS: 36591; 36593; J2997; A4216

== ENCOUNTER 2023-11-27 09:34 | Outpatient (CLI) | payer OTHER, SELFPAY ==
[2023-11-27 12:13] LABS: Hemoglobin A1c 5.5 % (3.8-5.6)
== END 2023-11-27 23:59 | disposition home or self-care (01) ==
LOC: MEDOUTP 09:34
PROVIDERS: PCP Family Medicine; Referring Provider Obstetrics & Gynecology; Visit Provider Obstetrics & Gynecology
DX: Z13.1 Encounter for screening for diabetes mellitus (principal); Z45.2 Encounter for adjustment and management of vascular access device
CPT/HCPCS: 36591; 83036; A4216

== ENCOUNTER 2023-12-02 07:57 | Day surgery (SDC) | payer SELFPAY, OTHER ==
--- NOTE | 2023-11-25 10:34 | EKG12_ITS ---
Test Reason : PRE OP Blood Pressure : / mmHG Vent. Rate : 074 BPM Atrial Rate : 074 BPM P-R Int : 166 ms QRS Dur : 072 ms QT Int : 394 ms P-R-T Axes : 040 004 006 degrees QTc Int : 437 ms Normal sinus rhythm Normal ECG Confirmed by ANDI BARAJAS, JERARDO ([id number]), subeditor GRACY PERALES ([id number]) on 11/25/2023 1:26:54 PM Referred By: LUIS Confirmed By:JERARDO ESCAMILLA MD
[2023-11-25 14:17] LABS: Hemoglobin 11.6 g/dL (12.0-15.0); Mean Corp Hgb Conc 33.1 g/dL (32-36); Mean Corpuscular Hgb 27.7 pg (27.0-32.0); Mean Corpuscular Volume 83.5 fL (81-99); Mean Platelet Vol. 9.4 fl (6.2-12.0); Platelet Count 212 K/mm3 (150-450); RBC Distribution Width CV 14.7 % (11.6-14.6); RBC Distribution Width SD 43.9 fl (35.1-43.9); Red Blood Count 4.19 M/mm3 (4.2-5.4); White Blood Count 4.6 K/mm3 (4.4-11.0)
[2023-11-25 14:29] LABS: ALB/GLOB Ratio 0.9 RATIO (0.9-2.4); AST(SGOT) 17 U/L (15-37); Alanine Aminotransfer ALT/SGPT 34 U/L (13-56); Albumin, Serum 3.1 g/dL (3.2-5.0); Alkaline Phosphatase 90 U/L (45-117); Anion Gap 6 (5-15); BUN 6 mg/dL (7-18); BUN/Creat Ratio 10.2 RATIO (10-20); Calcium,Total 8.5 mg/dL (8.5-10.1); Chloride 107 mmol/L (98-107); Creatinine, Serum 0.59 mg/dL (0.55-1.02); EST Glomerular Filtration Rate 119 mL/min (>60); Est Glom Filt Rate - Afr Amer 144 mL/min (>60); Globulin 3.4 g/dL (2.2-4.2); Glucose 190 mg/dL (74-106); Magnesium 2.2 mg/dL (1.6-2.6); Potassium 3.8 mmol/L (3.5-5.1); Protein, Total 6.5 g/dL (6.4-8.2); Sodium Level 142 mmol/L (136-145)
[2023-12-02] VITALS (13 sets, daily range): BP systolic 119–141; BP diastolic 83–96; PULSE 95–110; RESP 12–18; TEMP 36.5–36.9; O2SAT 94–99; BMI 41.6
[2023-12-02 08:57] LABS: Bedside Glucose 120 mg/dL (74-106)
--- NOTE | 2023-12-02 09:01 | PCM.PRE.AN2 ---
ASA Classification* ASA Classification ASA Classification: 3 Assessment & Plan Anesthesia* Anesthesia Assessment Anesthesia Assessment: Discussed sedation and/or anesthesia options, risks, benefits, and alternatives with patient/parents/legal guardian/POA. Questions invited. The patient/parents/legal guardian/POA seems to understand and agrees to proceed with anesthesia plan. Reviewed the physical assessment, medical history, allergy history and patient home medications list prior to surgery/procedure/anesthetic and documented any changes. Performed airway and anesthesia risk assessments. Anesthesia Type Anesthesia Type: General (see written pre anesthesia record for full assessment) Anesthesia Focused Assessment* Airway Assessment Mouth opens: >3 cm Mallampati Score: III Focused Labs Anesthesia Preop lab: CBC WBC 4.6 K/mm3 (4.4-11.0) 11/25/23 14:00 RBC 4.19 M/mm3 (4.2-5.4) L 11/25/23 14:00 Hgb 11.6 g/dL (12.0-15.0) L 11/25/23 14:00 Hct 35.0 % (37-47) L 11/25/23 14:00 Plt Count 212 K/mm3 (150-450) 11/25/23 14:00 CHEMISTRY Potassium 3.8 mmol/L (3.5-5.1) 11/25/23 14:00 Sodium 142 mmol/L (136-145) 11/25/23 14:00 Magnesium 2.2 mg/dL (1.6-2.6) 11/25/23 14:00 Phosphorus 4.0 mg/dL (2.5-4.9) 06/25/23 08:30 BUN 6 mg/dL (7-18) L 11/25/23 14:00 Creatinine 0.59 mg/dL (0.55-1.02) 11/25/23 14:00 Glucose 190 mg/dL (74-106) H 11/25/23 14:00 POC Glucose 120 mg/dL (74-106) H 12/02/23 08:37 COAG HCG, Quant < 1 mIU/mL (1-3) 04/09/23 08:03 Urine Test Negative Negative 04/04/23 06:10 Tst Clinic Negative 10/30/23 09:24 Pre-Assessment Diagnosis/Proposed Procedure Planned Operative Procedure(s): TOTAL ROBOTIC HYSTERECTOMY BILAT SALPING-OOPHERECTOMY,CYSTO Anesthesia History Anesthesia History - topographical surveyor: Anesthesia History - topographical surveyor Hx Hospitalization No 11/19/23 14:00 Any Problems With Anesthesia No 11/19/23 14:00 Cholinesterase deficiency No 11/19/23 14:00 You/Your Family Experience No 11/19/23 14:00 fever (hyperthermia) with Relationship Recent Exposure to Contagious No 07/15/23 06:29 Disease Does patient have nerve No 11/19/23 14:00 stimulator Patient instructed to have device shut off --Does patient have Pacemaker or ICD? When Was Last Pacemaker Check QUESTION #4 FULL TEXT: You/Your Family Experience fever (hyperthermia) with Anesthesia Last Oral Intake Last Oral intake: Last Oral Intake NPO since Meds taken in AM with sips of water? Meds patient instructed to take am of surgery PONV PONV - topographical surveyor: PONV - topographical surveyor Female Yes 11/19/23 14:00 HX of Motion Sickness No 11/19/23 14:00 HX of N/V After Surgery No 11/19/23 14:00 Non-Smoker Yes 11/19/23 14:00 Duration of Surgery greater Yes 11/19/23 14:00 than 60 minutes Number of Risk Factors 3 11/19/23 14:00 PONV Score Moderate Risk 11/19/23 14:00 Height & Weight Height & Weight: Anesthesia: Height & Weight Height 5 ft 5 in 12/01/23 10:00 Weight: 111.13 kg 12/01/23 05:42 Respiratory Assessment Respiratory Assessment - topographical surveyor: Respiratory Tract Infection Hx - topographical surveyor Hx Respiratory Tract Infection No 11/19/23 14:00 STOP Sleep Apnea STOP Sleep Apnea - topographical surveyor: STOP Sleep Apnea - topographical surveyor Hx Hypertension No 11/19/23 14:00 Hx Sleep Apnea No 11/19/23 14:00 CPAP BIPAP Do you snore loudly (louder No 11/19/23 14:00 than talking or can be heard Do you often feel tired/ No 11/19/23 14:00 fatigued/ sleepy during daytime? Has anyone observed you stop No 11/19/23 14:00 breathing during sleep? STOP Results Negative 11/19/23 14:00 QUESTION #5 FULL TEXT : Do you snore loudly (louder than talking or can be heard through closed doors)? Tobacco Use History Tobacco Use History - topographical surveyor: Tobacco Use History - topographical surveyor Tobacco Use Smoking Status Never smoker 11/19/23 14:00 Hx Tobacco Use No 11/19/23 14:00 Years Smoking Packs Smoked per Day Smoking Cessation Date was within the last 15 years Hx Smoking Cessation Date Hx Smoking Cessation Counseling Hematologic Medial History Hematologic Hx - topographical surveyor: Hematologic Medical Hx - documentation billing clerk Hx of Blood Transfusion No 11/19/23 14:00 Hx of Transfusion in last 3 No 11/19/23 14:00 Months Date of Last Transfusion (if within last 3 months) Ever experience any problems No 11/19/23 14:00 with transfusion(s)? Specify any problems Hx of Preganancy in last 3 No 11/19/23 14:00 Months Nurse Filling Out Transfusion DSCHRIBER 11/19/23 14:00 & Questions: Date: 11/19/23 11/19/23 14:00 Time: 14:02 11/19/23 14:00 Patient unable to answer at this time (ie. confused, unrespo /Reproduction History /Reproductive History - topographical surveyor: /Reproductive Hx- topographical surveyor Hx Now Gestational Age (in weeks): EDC: Hx Hx Para Hx Section SAB No 11/19/23 14:00 Active Medications Active Medications: Current Medications Generic Name Dose Route Start Last Admin Trade Name Freq PRN Reason Stop Dose Admin Acetaminophen 1,000 mg 12/02/23 10:20 Acetaminophen 500 Mg Tablet PO 12/02/23 10:21 PREOP ONE Celecoxib 400 mg 12/02/23 10:20 Celecoxib 200 Mg Capsule PO 12/02/23 10:21 X1 ONE Dexamethasone Sodium Phosphate 8 mg 12/02/23 10:20 Dexamethasone 4 Mg/Ml Vial IV 12/02/23 10:21 X1 ONE Gabapentin 600 mg 12/02/23 10:20 Gabapentin 600 Mg Tablet PO 12/02/23 10:21 PREOP ONE Lactated Ringer's 1,000 mls @ 40 mls/hr 12/02/23 10:20 IV .Q25H LORETO Cefazolin Sodium 2 gm/ Sodium 110 mls @ 150 mls/hr 12/02/23 10:20 Chloride IV 12/02/23 11:03 PREOP ONE Lactated Ringer's 1,000 mls @ 70 mls/hr 12/02/23 10:20 IV .[id number] LORETO Magnesium Sulfate 1 gm/ 102 mls @ 408 mls/hr 12/02/23 10:20 Dextrose IV 12/02/23 10:34 X1 ONE Insulin Human Lispro 0 unit 12/02/23 10:20 Insulin Lispro 100 Unit/Ml Insuln.Pen SC 12/02/23 16:30 Q4H PRN PRN BG >/= 180, SEE PROTOCOL Protocol Ondansetron HCl 4 mg 12/02/23 10:20 Ondansetron 4 Mg/2 Ml Vial IV 12/02/23 10:21 X1 ONE Phenazopyridine HCl 190 mg 12/02/23 10:20 Phenazopyridine 95 Mg Tablet PO 12/02/23 10:21 X1 ONE PFSH Medical History Rash Port-A-Cath in place 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 Chemotherapy management, encounter for Encounter for education Wears glasses Cancer Shortness of breath on exertion Non-smoker Leg cramps Axillary lymphadenopathy Breast mass, right Home Medications ?Medication ?Instructions ?Recorded ?Last Taken ?Type NK 10/24/23 Unknown History Allergy/AdvReac Type Severity Reaction Status Date / Time No Known Allergies Allergy Verified 12/01/23 10:09 Family History Mother Hypertension Cancer skin Surgical History History of right mastectomy H/O dilation and curettage delivery delivered Social History Smoking Status: Never smoker alcohol intake: never substance use type: does not use Review of Systems (Anesthesia) ROS Narrative System reviewed and no additional complaints, except as documented.
[2023-12-02] MEDS: Lactated Ringers 1,000 ML 40 ML IV (09:03)
[2023-12-02] MEDS: dexAMETHasone 4 MG/ML Vial 8 MG IV (09:04)
--- NOTE | 2023-12-02 09:07 | HP.PCM_ITS ---
History and Physical Date of Admission: 12/02/23 Intake Vital Signs 10/23/2412:09 10/28/2408:22 10/29/2408:13 10/29/2408:13 Height 5 ft 5 in 5 ft 5 in 5 ft 5 in 5 ft 5 in Weight: 255 lb 9 oz 252 lb 8 oz BMI 42.5 42.0 BP 127/84 H 128/85 H Blood Pressure Location Lt brachial Position Sitting Respiration 18 Pulse 80 Pulse Source Monitor Temp 97.7 F L Temperature Source Temporal Artery Pulse Oximetry (%) 95 Oxygen Delivery Method room air Intake Visit Reasons: EMB & PAP Director Of Vendor Management Required: No Is patient in pain?: No Allergies No Known Allergies Allergy (Verified 10/30/23 09:13) Medications ?Medication ?Instructions ?Recorded ?Confirmed ?Type NK 10/24/23 10/30/23 History Post menopausal: No Patient : No : No PFSH PFSH Medical History Port-A-Cath in place 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 Chemotherapy management, encounter for Encounter for education Wears glasses Cancer Shortness of breath on exertion Non-smoker Leg cramps Axillary lymphadenopathy Breast mass, right Surgical History History of right mastectomy H/O dilation and curettage delivery delivered Family History Mother Hypertension Cancer skin Social History Smoking Status: Never smoker alcohol intake: never substance use type: does not use History 11 Elective abortions Hx Para 8 Spontaneous abortions Hx # Term Pregnancies Ectopic pregnancies Hx # Pregnancies Multiple births # of living children HPI EMB & PAP Details: AZAR SANCHEZ is a 43 year old (7 vaginal deliveries one section 4 years ago) who presents for consultation for complete hysterectomy with BSO as is requested by oncology for risk reduction. 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 Negative for BRCA 1 and 2. She is s/p completion of right mastectomy and axillary dissection (07/15/2023). She has completed chemo and is now working on completion of 30 rounds of radiation. She states that she has 10 down and when finished wants to proceed with the hysterectomy. Endometrial biopsy showed benign tissue. ultrasound shows the following: INDINGS: UTERUS: Anteverted. The uterus measures 8.8 x 6.4 x 5.1 cm. The uterus is heterogeneous. There is a small mass in the anterior wall of the uterus measuring about 1.7 cm consistent with small uterine fibroid. There is another mass in the body of the uterus measuring about 2.5 cm. There is however nonspecific mild fluid within the endometrial cavity. The endometrial stripe measures 8 mm in AP diameter which is within normal limits for a premenopausal patient. RIGHT OVARY: 2.1 x 2.3 x 1.4 cm. Non-enlarged, normal echogenicity. There is normal arterial inflow and venous outflow present in the right ovary. LEFT OVARY: 2 x 1.9 x 1.1 cm. Non-enlarged, normal echogenicity. There is normal arterial inflow and venous outflow present in the left ovary. FREE FLUID: None. US/Pelvic w/ Transvaginal IMPRESSION: 1. Uterine fibroids. 2. Nonspecific mild fluid within the endometrial cavity. Office Procedures Endometrial Biopsy Endometrial Biopsy Details: Cervix prepped with betadine and pipelle inserted into uterus without complication. Specimen obtained and sent to lab for analysis. All instruments removed from vagina without complications. Excellent hemostasis noted. Results POC Urine Office , Urine Negative Last Edit by Charmaine Mortensen on 10/30/23 09:24 Coding Level of Care Code Off vis,est,level 4 Diagnoses Status post mastectomy Z90.10 Carcinoma of right breast metastatic to axillary lymph node C50.911; C77.3 Invasive ductal carcinoma of right breast C50.911 Assessment and Plan Assessment and Plan (1) Status post mastectomy: Status: Acute Comment: Patient presents for second postoperative visit in clinic. Today her wound is much improved in appearance and there is no longer significant concern for ongoing infection although her prior cultures were consistent with a polymicrobial infection and antibiotics were switched to reflect this change. I undertook limited debridement of the wound to excise some frankly necrotic tissue from the superior flap wound edge medially. This was well-tolerated by patient and remainder of the wound appears viable. Patient's instructed him lightly packing the wound moist?2?dry once daily. I was careful to spell out that he should not put any of the moistened gauze atop the epidermal layer. Additionally I remove patient's STEFFANIE #1 drain that drain the deep tissue where the breast once resided. This drain was removed after numbing that it has had no output over the past couple of days. Axillary drain remains intact and patient and her spouse confessed that they did not bring drainage log today. Encouraged to bring this next visit. (2) Carcinoma of right breast metastatic to axillary lymph node: Status: Acute (3) Invasive ductal carcinoma of right breast: Status: Acute Comment: Multifocal R breast cancer, UI, UL and UO quadrants, ER/MD positive, Her2 negative. Invasive Ductal Carcinoma, multifocal, Tumor size 3.7, + positive axillary nodes, Clinically stage IB(cT2 cN1 cM0). BRCA 1 and 2 negative. Completed neoadjuvant TC 04/09/23?06/11/2023. Status post right mastectomy and axillary lymph node dissection. Pathology showed invasive ductal carcinoma multifocal, 3 cm, 2.5 cm and 1 cm, grade 2, lymph nodes 10 out of 33 positive, margins negative. Pathologic staging ypT2 ypN3A. Stage IIIC. On adjuvant Radiation therapy. Discussed high risk disease, will make decision about starting hormonal therapy later. Orders: Orders POC Urine Today N91.2 - Amenorrhea, unspecified Endometrial Biopsy Today Z85.3 - Personal history of malignant neoplasm of breast PAP IG HPV APTIMA 16/18,45 Today Z12.4 - Encounter for screening for malignant neoplasm of cervix Plan After discussing the patient's diagnosis and treatment plan options, patient wishes to proceed with surgical management. I have discussed with the patient the risks, benefits, and alternatives of the procedure which include but are not limited to risks of anesthesia, bleeding, infection, possible damage to bowel, bladder, or surrounding vasculature which could lead to additional surgery to evaluate any complications. Patient agrees to procedure and wishes to proceed. ACOG/uptodate references given for additional information regarding procedure. plan is for total robotic hysterectomy, bilateral salpingo-oophorectomy and cystoscopy
--- NOTE | 2023-12-02 09:09 | DCINST_ITS ---
Discharge Instructions Diet Discharge Diet: No restrictions Activity May resume sexual activity in: 6 weeks Weight Bearing Status: Full weight bearing Additional Activity Instructions:: no lifting, pushing, pulling, more than 15 pounds until further discussion with the doctor. Dressing / Incision Call your doctor if your incision/area has: Continuous Slow Oozing, Sudden Increased Bleeding, Increased Pain/ Swelling, Increased Redness and Foul Smelling Discharge Call your doctor if you observe: Fever of 101 or Higher, Using more than 1 pad per hour, Shortness of breath, Chest pain and Uncontrolled pain Suture Line Care: Avoid Pulling/Pushing and Avoid Pinching/Bending Remove Dressing in: 1 week (if present) Cleanse incision/area with: Soap & Water and Keep Dressing Clean & Dry Follow Up Care Please Follow Up With: Koki Talley DO When: Call to make an appointment with your doctor for a postop visit in 2 and 6 weeks (this may already be scheduled) Test Results: Test results from this visit will be discussed in further detail at your follow- up appointment, if applicable. Discharge Plan Admission Attending Provider: Koki Talley Primary Care Provider: Nathan Gallegos Instructions Print Language: Bruneian Discharge Orders/Prescriptions Prescriptions: No Action NK Other Ambulatory Orders: ,Urine (Routine) Timeframe: 20231202 Facility: [facility] - Location: Laboratory Ordered By: Dr. Imer Antonio Referrals / Follow Up: Nathan Gallegos DO [Primary Care Provider] - Disposition Disposition (needs filled in before D/C Order can be placed): Home, Self Care
[2023-12-02] MEDS: Magnesium 1 GM over 15 mins IV (09:11)
[2023-12-02 09:26] LABS: Internal QC Validated? YES +Cl - CLEAR BKGD; Pregnancy, Serum, hCG Quali. NEGATIVE Negative
[2023-12-02] MEDS: Gabapentin 600 MG Tablet PO (09:30)
[2023-12-02] MEDS: Celecoxib 200 MG Capsule 400 MG PO (09:30)
[2023-12-02] MEDS: Phenazopyridine 95 MG Tablet 190 MG PO (09:30)
[2023-12-02] MEDS: Acetaminophen 500 MG Tablet 1000 MG PO (09:30)
[2023-12-02] MEDS: Cefazolin 2 GM in 0.9% Normal Saline (100mL Bag) 100 ML IV (10:18)
--- NOTE | 2023-12-02 10:20 | HYST_PTH ---
PATIENT: AZAR SANCHEZ [place] [facility] [id number] AGE/SX: 43/F ROOM: RE12/02/[address]: Dr. Koki Talley DO : 1980 BED: DIS: 12/02/2023 SPEC #: [id number] RECD: 12/02/23 13:32 STATUS: EDILSON SYLVAIN #: [id number] DORIAN: 12/02/23 10:[address]: Koki Talley DEPT: SURGICAL PATHOLOGY RECD BY: Joshua Rodgers ENTERED: 12/03/23 09:13 SP TYPE: HYSTERECT OTHR DR: Dr. Nathan Gallegos DO Tissues: Uterus, NOS Procedures: Surgery Specimen Level V HEADER OPERATION: Laparoscopic robotic hysterectomy, cystoscopy PRE-OP DIAGNOSIS: History of breast cancer, prophylactic hysterectomy TISSUE SUBMITTED: Uterus, cervix, bilateral fallopian tubes, bilateral ovaries MICROSCOPIC DIAGNOSIS Uterus, cervix, bilateral fallopian tube and ovaries, hysterectomy, bilateral salpingo-oopherectomy: Cervix - Chronic inflammation Endometrium - Proliferative endometrium Myometrium - No pathologic diagnosis Bilateral fallopian tubes- No pathologic diagnosis Right ovary- A small cystadenofibroma (0.3cm in greatest dimension) - Mesothelial inclusion cysts Left ovary- Mesothelial inclusion cysts. NAMRATA/ 12/04/2023 MICROSCOPIC DESCRIPTION Slides are reviewed. GROSS DESCRIPTION Received in fixative is one container labeled with the patient's name and is designated uterus, cervix, bilateral fallopian tubes, bilateral ovaries. The specimen consists of a hysterectomy specimen consisting of uterus with cervix and attached bilateral fallopian tubes and ovaries. The uterus with cervix weighs 120 gm and measures 9.0 x 8.0 x 4.0 cm. The serosal surface is vyas glistening. The ectocervical mucosa is unremarkable. The external os is slit-like in contour. The endocervical canal measures 3.0 cm in length and the endocervical mucosa is unremarkable. 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 The endometrium is vyas glistening without any mass lesions and measures 0.1cm in thickness. Sections of the uterine wall do not reveal any mass lesions and measures up to 2.5cm in thickness. Right fallopian tube measures 3.5cm in length and 0.5cm in diameter. Fimbrial end is identified. Sections reveal unremarkable cut surfaces. No tubo-ovarian and adhesion are noted. The right ovary measures 3.0 x 1.8 x 0.8cm. The left fallopian tube is similar in appearance to the right fallopian tube and measures 5.5cm in length and 0.5cm in diameter. A paratubal cyst is noted measuring 0.5cm in greatest dimension. The left ovary measures 2.5 x 1.0 x 1.0cm. Sections reveal unremarkable cut surfaces. Graining Press Operator sections are submitted in ten cassettes as follows: 1 - anterior cervix, 2 - posterior cervix, 3 & 4 - anterior uterine wall, 5 & 6 - posterior uterine wall, 7- right fallopian tube and ovary, 8- more section of right ovary (most of right ovary is submitted), 9- left fallopian tube and ovary, 10- more section of left ovary. : 12/03/2023 More sections are submitted in cassettes: 11-13- rest of the left fallopian tube and ovary. / 12/04/2023 TC:5 CPT: 00657
[2023-12-02] MEDS: Bupivacaine 0.25% 30 ML Vial (10:55)
[2023-12-02] MEDS: Ondansetron 4 MG/2 ML Vial IV (11:44)
--- NOTE | 2023-12-02 11:46 | PCM.OPRPT ---
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 On exploration of the abdominal cavity the uterus, adnexa, bowel, and liver were found to be normal. There was some mild endometriosis of the cul-de-sac. Cystoscopy showed no evidence of leaking at approximately 250 cc of normal saline, positive ureteral orifices and jet flow are seen and no suture material was appreciated in the bladder. Specimens removed: Uterus and cervix, [Bilateral tubes and ovaries] Reason for surgery: This is a 43-year-old G8, P8 who presented to my office with history of breast cancer and desire to remove the uterus and ovaries to better tailor treatment. The planned procedure is for a robotic hysterectomy the risks benefits and alternatives were discussed with the patient the patient had a clear understanding of the procedure and a consent form was signed. Surgeon: Koki Talley stone processing machine operator: Marco Tipton Type of Anesthesia: General Anesthesiologist: Markos Heath Specimen's removed: uterus, cervix, bilateral fallopian tubes and ovaries Drains: none Estimated Blood Loss (mL): 50cc Fluids Replaced: 1300cc Description of Procedure: Procedure: The patient was placed in the dorsal low lithotomy position and prepped and draped in the normal sterile fashion both abdominally and in the perineum. Her legs were placed in stirrups a Hansen catheter was inserted into the urethra without difficulty. A weighted speculum was placed in the vagina and a single-tooth tenaculum was used to grasp the anterior lip of the cervix. An advincula uterine manipulator was inserted through the cervix without complication. It was then tied into place at the 2 and 10:00 locations on the cervix. Gloves were changed and attention was turned towards the abdomen. Approximately 23 cm above the pubic symphysis in the midline, and after Marcaine injection, a 8 mm incision was made. An 8 mm trocar was inserted through the laparoscope, then inserted into the abdomen under direct visualization using the laparoscope. Good abdominal placement was noted and no complications were appreciated. An air seal device was utilized to create pneumoperitoneum. At 12 cm lateral to the midline on the left and right sides 8 mm accessory ports were placed. Next a left upper quadrant 8 mm assistant to the ceo port site was placed. The patient was placed in steep Trendelenburg position. The robot was docked. The hysterectomy was initiated first by taking down the round ligament on each side using the vessel sealer device. The peritoneum between the round ligament and the IP ligament was opened using electrocautery and extended the length of the IP ligament. The IP ligament was then taken down using the vessel sealer device. These areas were freed without complication the broad ligament was then and taken down using the vessel sealer device. Next the bladder flap was taken down without complication. This was done using monopolar cautery to the level of the cervical vaginal junction. After the bladder flap was created, uterine vessels were then isolated and cauterized using the vessel sealer device and EndoShears. At this point the uterine vessels were taken down further starting from the ascending branch, dissecting along the edges of the cervix to the level of the cervical vaginal junction with hemostasis appreciated. The cervical vaginal junction was then using monopolar cautery in a circumferential pattern across the superior aspect of the cervix. The specimen was delivered through the vagina and sent to pathology. The remaining vaginal cuff was then closed using a V lock suture. This was performed in a running technique. Excellent hemostasis was obtained and good closure was noted. Irrigation was then performed. All operative sites were noted to be hemostatic. A cystoscopy was performed with a 70 degree cystoscope through the urethra into the bladder without complication. The bladder was instilled with approximately 250 cc of normal saline. Intraoperative images were made. Ureteral orifices and jets were identified. No suture material was appreciated in the bladder. The bladder was then drained and cystoscope was removed. The abdominal cavity was again examined using the laparoscope after the robot was undocked. All operative sites were noted to be hemostatic. The trochars were removed under direct visualization without complication and pneumoperitoneum was reduced. At this point the skin was then closed using 4-0 Monocryl subcuticular stitch and sealed with surgical glue. The patient tolerated the procedure well sponge lap and needle counts were correct x2 the patient was taken to the recovery room in stable condition. Admit VTE Documentation VTE Present on Admission: Yes VTE Mechan Device Prophylaxis: SCD's VTE Pharm Prophylaxis ordered?: No Multi Select Codes Urinary/Genital Urinary/Genital CPT Codes: 22445 Cystoscopy and 65981 TLH+BS/O <250gr uterus
--- NOTE | 2023-12-02 12:24 | PCM.POST.ANE ---
Anesthesia: Postop Eval I Current Vital Signs Temperature: 98.4 F Pulse Rate: 110 Blood Pressure: 136/84 Respiratory Rate: 12 Pulse Ox: 94 Oxygen Delivery Method: Nasal Cannula Oxygen Flow Rate (L/min): 2 Fraction of Inspired Oxygen (FIO2): 28 EtCo2 (Normal 35-45 , high quality CPR 10-20 & ROSC>/=40mmHg): 41 Assessment Airway patent: Yes Spontaneous unlabored respirations: Yes Mental status: Calm nausea: No Vomiting: No Anesthesia Complication: No Fluid Hydration Crystalloid volume administer (ml): 1,300 Total IV fluid infused: 1,300 Progress Note Anesthesia document: Postop Eval 1 completed: Yes
[2023-12-02] MEDS: Lactated Ringers @ 70 MLS/HR 70 ML IV (13:23)
[2023-12-02] MEDS: oxyCODONE 5 MG Tablet PO (14:12)
--- NOTE | 2023-12-02 16:27 | POSTOPAN2_ITS ---
Anesthesia Postop Eval I Sum Postop Eval Completion status Anesthesia document: Postop Eval 1 completed: Yes Anesthesia Postop Eval I Summary Anesthesia Postop Eval I Summary: Anesthesia Postop Eval I: Assessment Summary Airway patent Yes 12/02/23 12:24 AGENCY SALES DEVELOPMENT [email or web address] Spontaneous unlabored Yes 12/02/23 12:24 AGENCY SALES DEVELOPMENT [email or web address] respirations Mental status Calm 12/02/23 12:24 AGENCY SALES DEVELOPMENT [email or web address].JDEF nausea No 12/02/23 12:24 AGENCY SALES DEVELOPMENT [email or web address].[email or web address] Vomiting No 12/02/23 12:24 AGENCY SALES DEVELOPMENT [email or web address] Anesthesia Postop Eval I: Fluid Summary Crystalloid volume administer 1,300 12/02/23 12:24 AGENCY SALES DEVELOPMENT [email or web address].[email or web address] (ml) Colloids volume administered ( ml) Blood Product volume administered (ml) Total IV fluid infused 1,300 12/02/23 12:24 AGENCY SALES DEVELOPMENT [email or web address] Anesthesia Postop Eval I: Summary Notes Anesthesia Complication No 12/02/23 12:24 AGENCY SALES DEVELOPMENT [email or web address].[email or web address] Anesthesia Complication Comment: Post-operative progress note Anesthesia: Postop Eval II Evaluation Mental status: Awake and Calm Pain Level: 2 nausea: No Vomiting: No Complications Anesthesia Complication: No
--- NOTE | 2023-12-02 16:27 | PCM.POSTANE2 ---
Anesthesia Postop Eval I Sum Postop Eval Completion status Anesthesia document: Postop Eval 1 completed: Yes Anesthesia Postop Eval I Summary Anesthesia Postop Eval I Summary: Anesthesia Postop Eval I: Assessment Summary Airway patent Yes 12/02/23 12:24 [email or web address] [email or web address] [email or web address] Spontaneous unlabored Yes 12/02/23 12:24 HAIR SALON [email or web address] respirations Mental status Calm 12/02/23 12:24 HAIR SALON [email or web address] nausea No 12/02/23 12:24 HAIR SALON [email or web address] Vomiting No 12/02/23 12:24 HAIR SALON [email or web address] Anesthesia Postop Eval I: Fluid Summary Crystalloid volume administer 1,300 12/02/23 12:24 HAIR SALON [email or web address] (ml) Colloids volume administered ( ml) Blood Product volume administered (ml) Total IV fluid infused 1,300 12/02/23 12:24 HAIR SALON [email or web address] Anesthesia Postop Eval I: Summary Notes Anesthesia Complication No 12/02/23 12:24 HAIR SALON [email or web address] Anesthesia Complication Comment: Post-operative progress note Anesthesia: Postop Eval II Evaluation Mental status: Awake and Calm Pain Level: 2 nausea: No Vomiting: No Complications Anesthesia Complication: No
== END 2023-12-02 18:17 | disposition home or self-care (01) ==
LOC: SDC 07:58 → AC 07:59
PROVIDERS: Anesthesiology; PCP Family Medicine; Referring Provider Obstetrics & Gynecology; Visit Provider Obstetrics & Gynecology
PROC: 0UT94ZZ Resection of Uterus, Percutaneous Endoscopic Approach (ICD-10-PCS; CPT 58571; principal; 2023-12-02 10:00)
DX: C50.911 Malignant neoplasm of unspecified site of right female breast (principal); C77.3 Secondary and unspecified malignant neoplasm of axilla and upper limb lymph nodes; D27.0 Benign neoplasm of right ovary; Z92.21 Personal history of antineoplastic chemotherapy; Z90.11 Acquired absence of right breast and nipple
CPT/HCPCS: 58571; S2900; 00840; 80053; 82962; 83735; 84703; 85027; 86850; 86900; 86901; 88307; 93005; J7120; A4216; J2405; J3475

== ENCOUNTER → 2024-02-24 | Outpatient (CLI) | payer SELFPAY, OTHER ==
--- NOTE | 2024-02-24 10:03 | BI_ITS ---
MAMMOGRAPHY - UNILATERAL SCREENING: LEFT BREAST REASON FOR EXAM: Female, 43 years old. Routine annual screening examination (unilateral). PERTINENT HISTORY: Personal history of breast cancer. Prior right mastectomy. TECHNIQUE: Digital unilateral breast alex (3D mammographic acquisition) in the CC and MLO projections. 2-D mediolateral oblique (MLO) and craniocaudad (CC) views of both breasts were obtained. CAD: Full Field Digital Mammography with Computer Added Detection was performed. COMPARISON: Comparison is made with prior study dated March 18, 2023. FINDINGS: Breast Composition: There are scattered areas of fibroglandular density. There are no dominant masses or suspicious calcifications. No other significant abnormalities are identified. There has been no significant change since the prior study. BI/SCREEN MAMM (CAD) W/ALEX UNI L IMPRESSION: Stable unilateral screening mammogram. Yearly follow-up mammogram recommended. (A) ASSESSMENT CATEGORY: BIRADS Category 1: Negative. A letter regarding these results will be sent to the patient by the facility within 30 days. Approximately 10% of breast cancers are not detected by mammography. A normal mammogram should not delay biopsy of a clinically suspicious abnormality. [id number] Electronically Signed: Albert Us MD at 10:53 EST ,
--- NOTE | 2024-02-24 10:05 | BD_ITS ---
STUDY: DUAL ENERGY X-RAY ABSORPTIOMETRY / DXA REASON FOR EXAM: Female, 43 years old. Screening for osteoporosis TECHNIQUE: Bone Mineral Density (BMD) measurements of lumbar spine and bilateral hips were obtained. COMPARISON: None. FINDINGS: Lumbar Spine (L1-L4): g/cm2 (1.062) / T-score (0.1) / Z-score (0.5) Findings are suggestive of normal bone density with a low fracture risk. Left Femur Total: g/cm2 (1.174) / T-score (1.9) / Z-score (2.2) Left Femoral Neck: g/cm2 (0.961) / T-score (1.0) / Z-score (1.4) Right Femur Total: g/cm2 (1.175) / T-score (1.9) / Z-score (2.2) Right Femoral Neck: g/cm2 (0.954) / T-score (0.9) / Z-score (1.3) BD/Dexa Bone Density Study IMPRESSION: The patient is considered normal as outlined below according to World Bryson Organization (WHO) criteria with a low fracture risk. Reference Information: The T-score is the number of standard deviations above or below the standard which is normal for young adults at their peak bone mineral density. The World Health Organization (WHO) interprets the T-scores as follows: Above -1 Normal bone density Between -1 and -2.5 Osteopenia Equal to / or below -2.5 Osteoporosis As a practical clinical guideline, osteopenia may be graded as follows: Mild -1 through -1.5 Moderate -1.6 through -2.0 Severe -2.1 through -2.4 The Z-score is the number of standard deviations above or below age-matched controls. A Z-score of less than -1.5 would be considered abnormal. References: 1. NIH Osteoporosis and Related Bone Diseases www osteo.org 2. International Society for Clinical Densitometry www iscd.org 3. National Osteoporosis Foundation www nof.org Electronically Signed: Albert Us MD at 14:00 EST ,
== END | disposition home or self-care (01) ==
PROVIDERS: PCP Family Medicine; Referring Provider Nurse Practitioner Family; Visit Provider Nurse Practitioner Family
DX: Z12.31 Encounter for screening mammogram for malignant neoplasm of breast (principal); Z13.820 Encounter for screening for osteoporosis
CPT/HCPCS: 77063; 77067; 77080

== ENCOUNTER → 2024-03-03 | Outpatient (CLI) | payer SELFPAY, OTHER ==
--- NOTE | 2024-03-03 08:28 | US_ITS ---
STUDY: ULTRASOUND BREAST - LEFT REASON FOR EXAM: Female, 43 years old. Left axillary palpable lump. TECHNIQUE: Axial and longitudinal images of the LEFT breast were performed with a high resolution ultrasound transducer. # OF IMAGES: 41 COMPARISON: Comparison is made with prior mammogram dated February 24, 2024. FINDINGS: LEFT Breast: The left axillary region was examined with ultrasound. No sonographic abnormality is seen. US/Breast Limited Unilateral IMPRESSION: No sonographic abnormality is seen. ASSESSMENT CATEGORY: BIRADS Category 1: Negative. A letter regarding these results will be sent to the patient by the facility within 30 days. Electronically Signed: Albert Us MD at 10:17 EST ,
== END | disposition home or self-care (01) ==
LOC: OPUS 08:28
PROVIDERS: PCP Family Medicine; Referring Provider Internal Medicine Medical Oncology; Visit Provider Internal Medicine Medical Oncology
DX: R22.9 Localized swelling, mass and lump, unspecified (principal)
CPT/HCPCS: 76642

== ENCOUNTER → 2024-05-31 | Outpatient (CLI) | payer SELFPAY, OTHER ==
--- NOTE | 2024-05-31 12:32 | CT_ITS ---
PROCEDURE: CHEST WITH CONTRAST (CTCHW), 05/31/2024 REASON FOR EXAM: follow up treated unresected ax LNs TECHNIQUE: CT chest was performed following the administration of IV contrast. Multiplanar reformats were generated. CONTRAST: 100 mL Isovue-300 COMPARISON: 03/27/2023 FINDINGS: Heart/pericardium: Unremarkable. Aorta: Unremarkable. Pulmonary arteries: Normal in caliber. Lymph nodes: Several of the previously seen enlarged right axillary nodes have resolved/decreased in size, however there is ill-defined spiculated soft tissue in the region of a previously prominent but technically nonenlarged right axillary node which previously measured 12 x 9 mm, irregular and very difficult to measure given similar attenuation to adjacent unopacified veins and muscles, approximating 2.9 x 1.6 x 3.5 cm (series 2 image 27). Surgical clips are present in the region despite the provided history. Slightly more inferiorly along the lateral margin of the pectoralis minor, there is a similar area of vaguely spiculated soft tissue thickening difficult to differentiate from adjacent musculature, also roughly 1.8 x 1.4 x 1.7 cm possibly (image 34). Borderline left hilar node, 12 mm short axis, not clearly measurable previously allowing for motion. Prominent but nonenlarged paratracheal and right hilar nodes up to 9 mm short axis. No left axillary lymphadenopathy. Lungs/pleura: Mild atelectasis/scarring. New nodular opacities in the subpleural right upper lobe near the minor fissure up to 5 mm (for example, series 4, image 49 and 50). Left lower lobe nodules up to 3 mm may have been obscured by motion previously (image 68, 75, and 77). Airways: Expiratory appearance of the trachea. Mild presumed airway secretions in the dependent trachea.. Chest wall: Interval right mastectomy. Spiculated nodular soft tissue thickening along the inferior aspect of the mastectomy bed measures 1.3 x 2.7 cm. Partially imaged left chest wall port/catheter. Upper abdomen: Grossly unremarkable. Musculoskeletal: Mild spondylosis. Mild thoracic dextroscoliosis. 1.3 cm focus of sclerosis in the left femoral head is new. Degenerative changes of the right shoulder. CT/Chest WITH Contrast IMPRESSION: 1. Interval right mastectomy. Surgical clips present in the right axillary reg ion despite provided history. Spiculated nodular areas of soft tissue thickening in the right axilla/chest wall including areas were lymphadenopathy was previously present as detailed, difficult to measure given similar density to adjacent unopacified va sculature and muscle. In the absence of comparison postoperative imaging, these are indeterminate for a nodular appeara nce of postoperative scarring versus local recurrence. Recommend PET/CT and/or tissue sampling. 2. Borderline left hilar lymph node was not measurable previously, early cherelle metastasis can not be excluded. 3. New right upper lobe nodules up to 5 mm. Left lower lobe nodules up to 3 mm may have been obscured by motion previously. These are indeterminate and could be infectious/inflammatory although early met astasis again can not be excluded. These are probably too small for resolution on PET/CT; recommend close attention on follo w-up. 4. 1.3 cm focus of sclerosis in the left femoral head is new, indeterminate for developing degenerative changes versus early bony metastasis. This could be further evaluated by PET/CT as above. Bone scan cou ld also be considered. 5. Diffuse hepatic steatosis. Correlate for clinical and laboratory evidence o f chronic liver disease. 6. Additional description as above. Reading Location: [id number]
== END | disposition home or self-care (01) ==
LOC: CT 12:31
PROVIDERS: PCP Family Medicine; Referring Provider Student in an Organized Health Care Education/Training Program; Visit Provider Student in an Organized Health Care Education/Training Program
DX: C50.911 Malignant neoplasm of unspecified site of right female breast (principal); C77.3 Secondary and unspecified malignant neoplasm of axilla and upper limb lymph nodes; M06.4 Inflammatory polyarthropathy; M35.00 Sjogren syndrome, unspecified; Z79.899 Other long term (current) drug therapy
CPT/HCPCS: 71260; Q9967; A4216

== ENCOUNTER → 2024-10-11 | Outpatient (CLI) | payer SELFPAY, OTHER ==
--- NOTE | 2024-10-11 13:17 | CT_ITS ---
PROCEDURE: CT CHEST AND ABD W/ CONTRAST 10/11/2024 REASON FOR EXAM: ABNORMAL PET SCAN/BREAST CA. Follow-up. No new pain. Chemotherapy completed. Prior radiation therapy, right mastectomy and lymph node resection. TECHNIQUE: Chest and abdomen CT with intravenous contrast. Coronal and Sagittal reconstruction series were provided. One or more dose reduction techniques were used (e.g., Automated exposure control, adjustment of the mA and/or kV according to patient size, use of iterative reconstruction technique. PATIENT PREPARATION: Per protocol ORAL CONTRAST TYPE: None. AMOUNT: 0 mL CONTRAST: Isovue-300 VOLUME: 100mL RADIATION DOSE SUMMARY: CTDlvol: 7.60, 20.41, 24.47 mGy DLP: 1520.86 mGycm COMPARISON: 05/31/2024 FINDINGS: CHEST: LUNGS: New right lower lobe nodule measuring 5.4 mm (Se: 6, Im: 65), with tiny distal tree-in-bud opacities. Cluster of nodules in the inferolateral left lower lobe have increased in size with the largest measuring 6.1 mm (Se: 601.2, Im: 163-170), previously 3.2 mm. Stable subpleural 3.1 mm left lower lobe nodule (Se: 6, Im: 68). No mass. Postradiation changes again noted in the ventral right upper lobe. PLEURAL SPACES: No pleural effusion. No pneumothorax. HEART: No cardiomegaly. No significant pericardial effusion. Coronary artery calcification (CAC) is absent. MEDIASTINUM/HILUM: No significant lymphadenopathy. Small stable mediastinal and bilateral hilar lymph nodes. AORTA: No aneurysm or dissection. ESOPHAGUS: Unremarkable. SOFT TISSUES: Postoperative changes from right mastectomy and axillary lymph node dissection. Left IJ central line tip terminating in the right atrium. BONES: No acute osseous abnormality. ABDOMEN: LIVER: Diffuse decrease in parenchymal density. No focal lesions. GALLBLADDER: Multiple calcified stone. BILE DUCTS: No ductal dilation. PANCREAS: Unremarkable. SPLEEN: Unremarkable. ADRENAL GLANDS: Unremarkable. KIDNEYS: Unremarkable. No hydronephrosis or hydroureter. STOMACH AND BOWEL: No obstruction or perforation. No wall thickening. No CT evidence of colitis or acute diverticulitis. RETRO/PERITONEUM: No free fluid. No free air. LYMPH NODES: No lymphadenopathy. VASCULATURE: No aortic aneurysm. SOFT TISSUES: Small fat-containing umbilical hernia. BONES: No acute osseous abnormality. CT/CT Chest AND Abd W/ Contrast IMPRESSION: 1. New right lower lobe nodule with distal tree-in-bud opacities. Interval enl argement of clustered nodules in the left lower lobe. These could be infectious or postinflammatory in etiology however metast atic disease is not excluded. Short-term follow-up imaging is recommended. 2. No acute finding or evidence of metastatic disease in the abdomen. 3. Cholelithiasis without signs of acute cholecystitis. Reading Location: [id number]
[2024-10-11] MEDS: 0.9% Saline Lock 10 ML Syringe IV (13:35)
== END | disposition home or self-care (01) ==
PROVIDERS: PCP Family Medicine; Referring Provider Internal Medicine Medical Oncology; Visit Provider Internal Medicine Medical Oncology
DX: C50.211 Malignant neoplasm of upper-inner quadrant of right female breast (principal); C50.411 Malignant neoplasm of upper-outer quadrant of right female breast; R94.8 Abnormal results of function studies of other organs and systems
CPT/HCPCS: 71260; 74160; Q9967; A4216

== ENCOUNTER → 2025-02-28 | Outpatient (CLI) | payer SELFPAY, OTHER ==
--- NOTE | 2025-02-28 08:30 | BI_ITS ---
EXAM: SCREEN MAMM (CAD) W/ALEX UNI L DATE: 02/28/2025 CLINICAL HISTORY: F, Age 44 y/o , H/O RIGHT BREAST CANCER, ANNUAL SCREENING History of right breast cancer. Patient had a right mastectomy. TECHNIQUE: Procedure Code: [id number] Modality: MG Procedure: SCREEN MAMM (CAD) W/ALEX UNI L COMPARISON: Prior exam(s) dated 02/24/2024 and 03/18/2023. FINDINGS: TISSUE DENSITY: There are scattered areas of fibroglandular density. Bilateral Breast Mammographic Findings: Benign round microcalcifications are seen in the left breast. There are 2, stable, well-circumscribed isodense masses in the superior outer, far posterior aspect of the left breast noted. The largest measures 4 mm. They appear to have fatty hilum and are most compatible with intramammary lymph nodes. There are no suspicious masses, suspicious cluster of microcalcifications, architectural distortion or secondary signs of malignancy identified in the left breast. BI/SCREEN MAMM (CAD) W/ALEX UNI L IMPRESSION: Benign screening mammogram OVERALL FINAL ASSESSMENT BI-RADS 2: BENIGN RECOMMENDATION: Routine annual follow-up in 1 Year Additional Recommendation none A letter with findings and recommendations will be mailed to the patient. Reading Location: [id number]
== END | disposition home or self-care (01) ==
LOC: OPBI 08:13
PROVIDERS: PCP Family Medicine; Referring Provider Student in an Organized Health Care Education/Training Program; Visit Provider Student in an Organized Health Care Education/Training Program
DX: Z12.31 Encounter for screening mammogram for malignant neoplasm of breast (principal)
CPT/HCPCS: 77063; 77067